=== PATIENT | female | born 1935 | race Caucasian/White ===

== ENCOUNTER 2017-06-13 13:15 | Inpatient (IN) | payer MEDICARE, OTHER ==
[~2017-06-13] VITALS: Ht 165.1 cm; Wt 69.9 kg
[~2017-06-13 13:15] MED LIST: BIMA2.5D5 EACHEYE; BLOO-129 IN; BRIM5DRO11 EACHEYE; CHOL50004 PO; DOCU-141 PO; DONE10TA44 PO; ESCI10TA PO; INSU100V10 SQ; LATA2.5D2 EACHEYE; LEVO75TA7 PO; LISI10TA5 PO; OMEP20CA10 PO; SIMV10TA6 PO; TRAZ-144 PO
[2017-06-13] MEDS ORDERED: IPRATROPIUM NEB FS 0.5 MG/2.5 ML AMPUL.NEB NEB ONE ×2 (13:30→14:30)
[2017-06-13] MEDS ORDERED: ALBUTEROL FS 2.5 MG/3 ML VIAL.NEB NEB ONE ×2 (13:30→14:30)
[2017-06-13] MEDS ORDERED: IV NS 0.9% 500 ML BAG IV ONE (13:30)
[2017-06-13] MEDS ORDERED: IPRATROPIUM NEB FS 0.5 MG/2.5 ML AMPUL.NEB ONE ×2 (13:39→14:35)
[2017-06-13] MEDS ORDERED: ALBUTEROL FS 2.5 MG/3 ML VIAL.NEB ONE ×2 (13:39→14:35)
[2017-06-13 14:09] LABS: BASOPHILS % (AUTO) 0.2 % (0.0-2.0); EOSINOPHILS % (AUTO) 0.1 % (0.0-6.0); HEMATOCRIT 40 % (33-45); HEMOGLOBIN 13.3 g/dL (11.5-14.8); LYMPHOCYTES # (AUTO) 1.4 /CMM (0.8-4.8); LYMPHOCYTES % (AUTO) 9.8 % (20.0-44.0); MEAN CORPUSCULAR HEMOGLOBIN 30 PG (26.0-33.0); MEAN CORPUSCULAR HGB CONC 33 g/dl (31.0-36.0); MEAN CORPUSCULAR VOLUME 90 fL (82-100); MONOCYTES # (AUTO) 0.7 /CMM (0.1-1.30); MONOCYTES % (AUTO) 5.1 % (2.0-12.0); NEUTROPHILS # (AUTO) 11.8 /CMM (1.8-8.9); NEUTROPHILS % (AUTO) 84.8 % (43.0-81.0); PLATELET COUNT (AUTO) 188 /CMM (150-450); RDW COEFFICIENT OF VARIATION 13.8 (11.5-15.0); RED BLOOD CELL COUNT(AUTO) 4.46 MIL/uL (4.0-5.2); WHITE BLOOD COUNT (AUTO) 13.9 K/uL (4.3-11.0)
[2017-06-13] MEDS ORDERED: TRIA15OI2 TP (14:09)
[2017-06-13] MEDS ORDERED: PROM6.25 PO (14:09)
[2017-06-13] MEDS ORDERED: LORA10TA7 PO (14:09)
[2017-06-13] MEDS ORDERED: QUET25TA PO (14:09)
[2017-06-13] MEDS ORDERED: CHOL100044 PO (14:09)
[2017-06-13] MEDS ORDERED: MEGE40TA PO (14:09)
[2017-06-13] MEDS ORDERED: VALS80TA2 PO (14:09)
[2017-06-13] MEDS ORDERED: KETO120S2 TP (14:13)
[2017-06-13 14:16] LABS: CARBON DIOXIDE 29 mmol/L (21-32); CHLORIDE 105 mmol/L (98-107); CREATININE 1.1 mg/dL (0.6-1.3); GLUCOSE 262 mg/dL (74-106); POTASSIUM 3.6 mmol/L (3.5-5.1); SODIUM SERUM 140 mmol/L (136-145); UREA NITROGEN, BLOOD 20 mg/dL (7-18)
[2017-06-13 14:24] LABS: TROPONIN I < 0.017 ng/mL (0.00-0.056)
[2017-06-13] MEDS ORDERED: VANCOMYCIN 1 GM in IV D5W 250 ML IV SCH (14:30)
[2017-06-13] MEDS ORDERED: LEVOFLOXACIN 750 MG /D5W 150ML 750 MG in PREMIX 1 EA IV SCH (14:30)
--- NOTE | 2017-06-13 14:30 | NUR ---
PAGED DR LAUREN FOR ADMISSION
[2017-06-13 14:32] LABS: ALANINE AMINOTRANSFERASE 20 U/L (12-78); ALKALINE PHOSPHATASE 74 U/L (46-116); ASPARTATE AMINOTRANSFERASE 20 U/L (15-37); B-TYPE NATRIURETIC PEPTIDE 918 PG/ML (0-125); BILIRUBIN,DIRECT 0.7 mg/dL (0.0-0.2); TOTAL PROTEIN, SERUM 8.8 g/dL (6.4-8.2)
[2017-06-13 14:36] LABS: INR 0.99 (0.85-1.15)
[2017-06-13] MEDS ORDERED: LEVOFLOXACIN 750 MG /D5W 150ML 150 ML IV ONE (14:42)
--- NOTE | 2017-06-13 16:00 | NUR ---
MS RN NOTES ADMITTED PATIENT FROM ER ACCOMPANIED BY DAUGHTER IN STABLE CONDITION. NO SOB NOTED. NO ACUTE DISTRESS NOTED. BREATHING UNLABORED. ORIENTED TO THE ROOM. NEEDS ATTENDED. SAFETY MEASURES IS PLACE. CALL LIGHT PLACED WITHIN REACH. WILL CONTINUE TO MONITOR ACCORDINGLY.
[2017-06-13] MEDS ORDERED: ONDANSETRON HCL/PF 4 MG/2 ML VIAL IVP PRN (17:00)
[2017-06-13] MEDS ORDERED: ACETAMINOPHEN 325 MG TABLET PO PRN (17:00)
[2017-06-13] MEDS ORDERED: ALBUTEROL FS 2.5 MG/3 ML VIAL.NEB NEB PRN (17:00)
[2017-06-13] MEDS ORDERED: DEXTROSE 50%-WATER 50 ML DISP.SYRIN IV PRN (17:30)
[2017-06-13] MEDS: IV NS 0.9% 1,000 ML IV PRN (17:59)
[2017-06-13] MEDS: BLOOD SUGAR DIAGNOSTIC 1 EACH STRIP IN SCH ×2 (18:00→21:24)
[2017-06-13] MEDS ORDERED: PIPERACILLIN /TAZOBACTAM 3.375 G in IV D5W 50 ML IV ONE (18:00)
--- NOTE | 2017-06-13 19:00 | NUR ---
MS RN NOTES PATIENT IN BED EYES CLOSED, AROUSABLE TO VERBAL AND TACTILE STIMULI. VERBALLY RESPONSIVE. ON O2 @ 3LPM VIA NC. NO ACUTE DISTRESS NOTED. NO SOB NOTED. BREATHING UNLABORED. IV ACCESS PATENT AND INTACT. NO S/SX OF REDNESS OR SWELLING. SAFETY MEASURES IN PLACE. CALL LIGHT WITHIN REACH. PATIENT DIDN'T WANNA EAT DINNER YET, INSULIN NOT GIVEN YET AT THIS TIME, ENDORSED TO CITY ENGINEER NURSE FOR CONTINUITY OF CARE.
--- NOTE | 2017-06-13 19:30 | NUR ---
MS RN OPENING NOTES: PATIENT IN BED, AOX2, MOSTLY AZERI SPEAKING BUT RESPONDS IN SIMPLE LAO AT TIMES. ON O2 AT 3 LPM VIA NC, BREATHING EVEN AND UNLABORED. BREATH SOUNDS CLEAR TO AUSCULTATION, DIMINISHED AT BASES. PIV OVER LAC G 20 INTACT AND INFUSING WELL WITH NS RUNNING AT 75 ML/HR. PROVIDED FOR COMFORT AND SAFETY. BED IN LOWEST AND LOCKED POSITION, SIDERAILS UP X 3, BED ALARMS ON. CALL LIGHT WITHIN REACH. WILL CONT TO MONITOR.
[2017-06-13 20:00] VITALS: BP 137/60
[2017-06-13] MEDS: TRAZODONE 50 MG TABLET PO SCH (21:24)
[2017-06-13] MEDS: DONEPEZIL 5 MG TABLET PO SCH (21:24)
[2017-06-13] MEDS: SIMVASTATIN 10 MG TABLET PO SCH (21:24)
[2017-06-13] MEDS: LATANOPROST EYE DROP 0.005% 2.5 ML BOTTLE OP SCH (21:25)
[2017-06-13] MEDS: INSULIN REGULAR, HUMAN 100 UNIT/ML 3 ML VIAL SQ PRN (21:35)
--- NOTE | 2017-06-13 22:00 | NUR ---
RN NOTES; BLOOD SUGAR CHECKED AT 214 MG/DL, ADMINISTERED 4 UNITS REGULAR INSULIN. PATIENT OFFERED LIGHT SNACK.
[2017-06-14] MEDS: IV NS 0.9% 1,000 ML IV PRN (05:49)
[2017-06-14] MEDS: BLOOD SUGAR DIAGNOSTIC 1 EACH STRIP IN SCH ×4 (06:32→21:27)
--- NOTE | 2017-06-14 06:53 | NUR ---
MS RN CLOSING NOTES: PATIENT IN BED, AOX2, ON O2 AT 3 LPM VIA NC, BREATHING EVEN AND UNLABORED. APPEARS CALM AND IN NO DISTRESS. PIV OVER LAC G 20 INTACT AND PATENT, INFUSING WELL WITH NS RUNNING AT 75 ML/HR. AM BLOOD SUGAR CHECKED AT 120 MG/DL. DUE MEDS GIVEN. PROVIDED FOR COMFORT AND SAFETY. BED IN LOWEST AND LOCKED POSITION, SIDERAILS UP X3, CALL LIGHT WITHIN REACH. WILL ENDORSE TO AM RN FOR CARO
--- NOTE | 2017-06-14 07:00 | NUR ---
MS RN OPENING NOTES RECEIVED PATIENT IN BED ALERT ORIENTED. HOB ELEVATED. NO ACUTE DISTRESS NOTED. BREATHING UNLABORED. NO SOB NOTED. ON O2 @ 3LPM VIA NC. IV ACCESS PATENT AND INTACT. NO REDNESS OR SWELLING NOTED. SAFETY MEASURES IN PLACE. CALL LIGHT PLACED WITHIN REACH. WILL CONTINUE TO MONITOR ACCORDINGLY.
[2017-06-14 07:09] LABS: BASOPHILS % (AUTO) 0.1 % (0.0-2.0); EOSINOPHILS # (AUTO) 0.1 /CMM (0.0-0.7); EOSINOPHILS % (AUTO) 0.5 % (0.0-6.0); HEMATOCRIT 36 % (33-45); LYMPHOCYTES # (AUTO) 0.9 /CMM (0.8-4.8); LYMPHOCYTES % (AUTO) 7.7 % (20.0-44.0); MEAN CORPUSCULAR HEMOGLOBIN 30 PG (26.0-33.0); MEAN CORPUSCULAR HGB CONC 33 g/dl (31.0-36.0); MEAN CORPUSCULAR VOLUME 92 fL (82-100); MONOCYTES # (AUTO) 0.8 /CMM (0.1-1.30); MONOCYTES % (AUTO) 6.6 % (2.0-12.0); NEUTROPHILS % (AUTO) 85.1 % (43.0-81.0); PLATELET COUNT (AUTO) 139 /CMM (150-450); RDW COEFFICIENT OF VARIATION 14.6 (11.5-15.0); RED BLOOD CELL COUNT(AUTO) 3.94 MIL/uL (4.0-5.2); WHITE BLOOD COUNT (AUTO) 11.7 K/uL (4.3-11.0)
[2017-06-14 07:34] LABS: CALCIUM, SERUM 9.4 mg/dL (8.5-10.1); CARBON DIOXIDE 28 mmol/L (21-32); CHLORIDE 107 mmol/L (98-107); CREATININE 0.8 mg/dL (0.6-1.3); GLUCOSE 138 mg/dL (74-106); MAGNESIUM 1.9 mg/dL (1.8-2.4); PHOSPHORUS 3.2 mg/dL (2.5-4.9); POTASSIUM 4.4 mmol/L (3.5-5.1); SODIUM SERUM 142 mmol/L (136-145); UREA NITROGEN, BLOOD 16 mg/dL (7-18)
[2017-06-14 08:00] VITALS: BP 121/62
[2017-06-14] MEDS: LEVOTHYROXINE SODIUM 75 MCG TABLET PO SCH (08:25)
[2017-06-14] MEDS: VALSARTAN 80 MG TABLET PO SCH (08:26)
[2017-06-14] MEDS: LORATADINE 10 MG TABLET PO SCH (08:26)
[2017-06-14] MEDS: QUETIAPINE FUMARATE 25 MG TABLET PO SCH ×2 (08:26→17:05)
[2017-06-14] MEDS: ESCITALOPRAM OXALATE (10 MG) 10 MG TABLET PO SCH (08:26)
[2017-06-14] MEDS: PANTOPRAZOLE 40 MG VIAL IV SCH (08:26)
[2017-06-14] MEDS: CHOLECALCIFEROL 1,000 UNIT TABLET (VIT D3) PO SCH (08:26)
[2017-06-14] MEDS: BRIMONIDINE TARTRATE OPHT SOLN 5 ML BOTTLE EACHEYE SCH ×2 (08:29→17:05)
[2017-06-14] MEDS: ALBUTEROL FS 2.5 MG/3 ML VIAL.NEB NEB SCH ×3 (08:52→19:42)
[2017-06-14] MEDS: INSULIN GLARGINE, 100 UNIT/ML CARTRIDGE SQ SCH (09:46)
--- NOTE | 2017-06-14 09:46 | NUR ---
WOUND CARE CONSULT: PT PRESENTS WITH LEFT HEEL DTI WHICH IS INTACT AND PRESENT ON ADMISSION. ALL SKIN PROTECTION AND WOUND CARE RECOMMENDATIONS DISCUSSED WITH NURSING STAFF. RECOMMEND DPM CONSULT. WILL SEE PRN. LONG IN AGREEMENT WITH PLAN OF CARE. Addendum: 06/14/17 at 0947 by ILIA GARCIA WNDNU Amended: Links added.
[2017-06-14] MEDS: predniSONE 20 MG TABLET PO SCH (09:47)
[2017-06-14] MEDS: INSULIN REGULAR, HUMAN 100 UNIT/ML 3 ML VIAL SQ PRN ×3 (12:26→21:47)
[2017-06-14] MEDS: LEVOFLOXACIN 750 MG /D5W 150ML 750 MG in PREMIX 1 EA IV SCH (15:07)
[2017-06-14 16:00] VITALS: BP 90/50
--- NOTE | 2017-06-14 18:30 | NUR ---
MS RN CLOSING NOTES PATIENT IN BED EYES CLOSED, AROUSABLE. RESPONSIVE TO VERBAL AND TACTILE STIMULI. NO ACUTE DISTRESS NOTED. BREATHING UNLABORED. NO SOB NOTED. ON O2 @ 3LPM VIA NC. IV ACCESS PATENT AND INTACT. NO REDNESS OR SWELLING NOTED. SAFETY MEASURES IN PLACE.HOB ELEVATED. DUE MEDICATIONS GIVEN, NO ASE NOTED. NEEDS ATTENDED AND ANTICIPATED. CALL LIGHT PLACED WITHIN REACH. WILL CONTINUE TO MONITOR ACCORDINGLY.WILL ENDORSE TO SAMPLE WRAPPER FOR CONTINUITY OF CARE.
--- NOTE | 2017-06-14 19:30 | NUR ---
MS RN OPENING NOTES: PATIENT IN BED, AOX2, ON ROOM AIR AT THIS TIME, SINCE PATIENT REFUSES TO WEAR NASAL CANNULA. APPEARS CALM AND IN NO DISTRESS. BREATHING EVEN AND UNLABORED. BREATH SOUNDS CLEAR TO AUSCULTATION. PIV OVER LAC G20 INTACT AND PATENT TO FLUSH. PROVIDED FOR COMFORT AND SAFETY. BED IN LOWEST AND LOCKED POSITION, SIDERAILS UP X 3, BED ALARMS ON. WILL CONT TO MONITOR.
[2017-06-14 20:00] VITALS: BP 111/64
[2017-06-14] MEDS: LATANOPROST EYE DROP 0.005% 2.5 ML BOTTLE OP SCH (21:28)
[2017-06-14] MEDS: SIMVASTATIN 10 MG TABLET PO SCH (21:32)
[2017-06-14] MEDS: DONEPEZIL 5 MG TABLET PO SCH (21:32)
[2017-06-14] MEDS: TRAZODONE 50 MG TABLET PO SCH (21:32)
--- NOTE | 2017-06-14 21:47 | NUR ---
RN NOTES: PATIENT'S BLOOD SUGAR CHECKED AT 243 MG/DL, ADMINISTERED 4 UNITS REGULAR INSULIN. ASSISTED PATIENT WITH LIGHT SNACK.
[2017-06-15] MEDS: BLOOD SUGAR DIAGNOSTIC 1 EACH STRIP IN SCH ×4 (06:41→21:50)
[2017-06-15] MEDS: INSULIN REGULAR, HUMAN 100 UNIT/ML 3 ML VIAL SQ PRN ×4 (06:42→21:54)
[2017-06-15] MEDS: LEVOTHYROXINE SODIUM 75 MCG TABLET PO SCH (06:46)
--- NOTE | 2017-06-15 06:50 | NUR ---
MS RN CLOSING NOTES: PATIENT IN BED, AOX2, ON ROOM AIR, BREATHING EVEN AND UNLABORED. APPEARS CALM AND IN NO DISTRESS. DENIES PAIN. PIV OVER LAC G 20 INTACT AND PATENT TO FLUSH. AM BLOOD SUGAR CHECKED AT 184 MG/DL, ADMINISTERED 3 UNITS REGULAR INSULIN PER SCALE. DUE MEDS GIVEN. PROVIDED FOR COMFORT AND SAFETY. BED IN LOWEST AND LOCKED POSITION, SIDERAILS UP X 3, BED ALARMS ON. WILL ENDORSE TO AM RN FOR CARO.
--- NOTE | 2017-06-15 07:00 | NUR ---
MS RN OPENING NOTES RECEIVED PATIENT IN BED ALERT ORIENTED X 3 . NO SOB NOTED. NO ACUTE DISTRESS NOTED. BREATHING UNLABORED. IV ACCESS PATENT AND INTACT. NO REDNESS OR SWELLING NOTED. SAFETY MEASURES IN PLACE. HOB ELEVATED. CALL LIGHT PLACED WITHIN REACH. WILL CONTINUE TO MONITOR ACCORDINGLY.
[2017-06-15 07:16] LABS: HEMATOCRIT 35 % (33-45); HEMOGLOBIN 11.6 g/dL (11.5-14.8); LYMPHOCYTES # (AUTO) 0.7 /CMM (0.8-4.8); MEAN CORPUSCULAR HEMOGLOBIN 31 PG (26.0-33.0); MEAN CORPUSCULAR HGB CONC 34 g/dl (31.0-36.0); MEAN CORPUSCULAR VOLUME 91 fL (82-100); MONOCYTES # (AUTO) 0.4 /CMM (0.1-1.30); MONOCYTES % (AUTO) 4.7 % (2.0-12.0); NEUTROPHILS # (AUTO) 7.9 /CMM (1.8-8.9); NEUTROPHILS % (AUTO) 87.3 % (43.0-81.0); PLATELET COUNT (AUTO) 164 /CMM (150-450); RDW COEFFICIENT OF VARIATION 13.9 (11.5-15.0)
[2017-06-15 07:29] LABS: CALCIUM, SERUM 9.6 mg/dL (8.5-10.1); CARBON DIOXIDE 27 mmol/L (21-32); CHLORIDE 106 mmol/L (98-107); CREATININE 0.9 mg/dL (0.6-1.3); GLUCOSE 201 mg/dL (74-106); MAGNESIUM 1.9 mg/dL (1.8-2.4); POTASSIUM 4.3 mmol/L (3.5-5.1); SODIUM SERUM 140 mmol/L (136-145); UREA NITROGEN, BLOOD 26 mg/dL (7-18)
[2017-06-15 08:00] VITALS: BP 121/60
[2017-06-15] MEDS: ALBUTEROL FS 2.5 MG/3 ML VIAL.NEB NEB SCH ×3 (08:10→19:18)
[2017-06-15] MEDS: BRIMONIDINE TARTRATE OPHT SOLN 5 ML BOTTLE EACHEYE SCH ×2 (08:57→17:49)
[2017-06-15] MEDS: PANTOPRAZOLE 40 MG VIAL IV SCH (08:58)
[2017-06-15] MEDS: CHOLECALCIFEROL 1,000 UNIT TABLET (VIT D3) PO SCH (08:58)
[2017-06-15] MEDS: LORATADINE 10 MG TABLET PO SCH (08:59)
[2017-06-15] MEDS: ESCITALOPRAM OXALATE (10 MG) 10 MG TABLET PO SCH (08:59)
[2017-06-15] MEDS: VALSARTAN 80 MG TABLET PO SCH (08:59)
[2017-06-15] MEDS: predniSONE 20 MG TABLET PO SCH (08:59)
[2017-06-15] MEDS: QUETIAPINE FUMARATE 25 MG TABLET PO SCH ×2 (08:59→17:49)
[2017-06-15] MEDS: INSULIN GLARGINE, 100 UNIT/ML CARTRIDGE SQ SCH (09:00)
--- NOTE | 2017-06-15 11:20 | NUR ---
MS RN NOTES SEEN AND EVALUATED BY DR LAUREN WITH NEW ORDERS MADE. NOTED AND CARRIED OUT.
[2017-06-15 16:00] VITALS: BP 124/69
--- NOTE | 2017-06-15 18:30 | NUR ---
MS RN CLOSING NOTES PATIENT IN BED ALERT ORIENTED. VERBALLY RESPONSIVE. NO ACUTE DISTRESS NOTED. BREATHING UNLABORED. NO SOB NOTED. ON O2 @ 3LPM VIA NASAL CANULA. IV ACCESS PATENT AND INTACT, NO REDNESS OR SWELLING NOTED. DUE MEDICATIONS GIVEN. NO ASE NOTED. NEEDS ATTENDED AND ANTICIPATED. HOB ELEVATED. SAFETY MEASURES IS PLACE. CALL LIGHT WITHIN REACH. WILL CONTINUE TO MONITOR ACCORDINGLY. WILL ENDORSE TO FREIGHT ENGINEER FOR CONTINUITY OF CARE.
--- NOTE | 2017-06-15 19:00 | NUR ---
RECIEVED ALERT . SPEAKING SOME TURKMEN SOME CAYMAN ISLANDER. EASILY AGITATED AND WILL YELL AT THE NURSE SAYING " GET OUT", BUT THEN FORGETS AND WILL SMILE AND BE NICE. BED ALARM ON
[2017-06-15 20:00] VITALS: BP 125/60
[2017-06-15 20:29] VITALS: BP 125/60
[2017-06-15] MEDS: TRAZODONE 50 MG TABLET PO SCH (21:55)
[2017-06-15] MEDS: SIMVASTATIN 10 MG TABLET PO SCH (21:55)
[2017-06-15] MEDS: LATANOPROST EYE DROP 0.005% 2.5 ML BOTTLE OP SCH (21:58)
[2017-06-15] MEDS: DONEPEZIL 5 MG TABLET PO SCH (22:02)
[2017-06-16 05:39] VITALS: BP 121/68
--- NOTE | 2017-06-16 05:41 | NUR ---
MS PRUITT IS CONFUSED AND TALKS LOUDLY. SHE REMOVED HER HEPLOCK STARTED AT THE BEGINNING OF THE SHIFT RESTARTED AND SHE WAS COOPERATIVE. SHE IS FREQ. SAYING SHE IS HUNGARY AND WANT TO EAT, WILL YELL OUT FOR FOOD IF SHE IS TOLD NO. REFUSES TO KEEP ON HER 02 BUT SHE DOES SAT 95 - 100% ROOM AIR
[2017-06-16] MEDS: BLOOD SUGAR DIAGNOSTIC 1 EACH STRIP IN SCH ×4 (06:38→21:13)
[2017-06-16] MEDS: INSULIN REGULAR, HUMAN 100 UNIT/ML 3 ML VIAL SQ PRN ×4 (06:41→21:25)
[2017-06-16 06:42] LABS: BASOPHILS % (AUTO) 0.2 % (0.0-2.0); EOSINOPHILS % (AUTO) 0.1 % (0.0-6.0); HEMATOCRIT 34 % (33-45); HEMOGLOBIN 11.2 g/dL (11.5-14.8); LYMPHOCYTES % (AUTO) 11.3 % (20.0-44.0); MEAN CORPUSCULAR HEMOGLOBIN 30 PG (26.0-33.0); MEAN CORPUSCULAR HGB CONC 34 g/dl (31.0-36.0); MEAN CORPUSCULAR VOLUME 90 fL (82-100); MONOCYTES # (AUTO) 0.6 /CMM (0.1-1.30); MONOCYTES % (AUTO) 6.2 % (2.0-12.0); NEUTROPHILS # (AUTO) 7.5 /CMM (1.8-8.9); NEUTROPHILS % (AUTO) 82.2 % (43.0-81.0); PLATELET COUNT (AUTO) 180 /CMM (150-450); RDW COEFFICIENT OF VARIATION 13.6 (11.5-15.0); WHITE BLOOD COUNT (AUTO) 9.1 K/uL (4.3-11.0)
[2017-06-16 06:53] LABS: CALCIUM, SERUM 9.5 mg/dL (8.5-10.1); CARBON DIOXIDE 29 mmol/L (21-32); CHLORIDE 105 mmol/L (98-107); CREATININE 0.9 mg/dL (0.6-1.3); GLUCOSE 234 mg/dL (74-106); MAGNESIUM 1.9 mg/dL (1.8-2.4); POTASSIUM 3.9 mmol/L (3.5-5.1); SODIUM SERUM 141 mmol/L (136-145); UREA NITROGEN, BLOOD 25 mg/dL (7-18)
[2017-06-16 08:00] VITALS: BP 151/71
[2017-06-16] MEDS: BRIMONIDINE TARTRATE OPHT SOLN 5 ML BOTTLE EACHEYE SCH ×2 (08:08→16:48)
[2017-06-16] MEDS: LEVOTHYROXINE SODIUM 75 MCG TABLET PO SCH (08:09)
[2017-06-16] MEDS: ESCITALOPRAM OXALATE (10 MG) 10 MG TABLET PO SCH (08:09)
[2017-06-16] MEDS: predniSONE 20 MG TABLET PO SCH (08:09)
[2017-06-16] MEDS: CHOLECALCIFEROL 1,000 UNIT TABLET (VIT D3) PO SCH (08:10)
[2017-06-16] MEDS: QUETIAPINE FUMARATE 25 MG TABLET PO SCH ×2 (08:12→16:49)
[2017-06-16] MEDS: VALSARTAN 80 MG TABLET PO SCH (08:13)
[2017-06-16] MEDS: LORATADINE 10 MG TABLET PO SCH (08:13)
[2017-06-16] MEDS: PANTOPRAZOLE 40 MG VIAL IV SCH (08:16)
[2017-06-16] MEDS: ALBUTEROL FS 2.5 MG/3 ML VIAL.NEB NEB SCH ×3 (08:18→19:41)
[2017-06-16] MEDS: INSULIN GLARGINE, 100 UNIT/ML CARTRIDGE SQ SCH (10:29)
[2017-06-16 16:00] VITALS: BP 126/58
[2017-06-16] MEDS: LEVOFLOXACIN 750 MG /D5W 150ML 750 MG in PREMIX 1 EA IV SCH (16:42)
--- NOTE | 2017-06-16 16:47 | NUR ---
RN NOTES DELIVERED ANTIBIOTICS FROM PHARMACY
--- NOTE | 2017-06-16 16:47 | NUR ---
RN NOTES DELIVERED ANTIBIOTICS FROM ER NOW
--- NOTE | 2017-06-16 19:30 | NUR ---
MS RN OPENING NOTES RECEIVED PATIENT RESTING IN BED WATCHING TV, ALERT ORIENTED X1-2. NEEDS FREQUENT REORIENTATIONS. ON 2L OF OXYGEN VIA NC. RESPIRATIONS EVEN AND UNLABORED, NO APPARENT SIGN OF DISTRESS OR DISCOMFORT. PATIENT DENIES SOB AND PAIN AT THIS TIME. RIGHT HAND IV 22G, FLASHED WITH NS, PATENT AND INTACT. PATIENT IS BAHRAINI SPEAKING BUT UNDERSTANDS YI. SAFETY MEASURES IN PLACE, BED IS IN LOW LOCKED POSITION, SIDE RAILS UPX2, ALARM ON, CALL LIGHT WITHIN EASY REACH. WILL CONTINUE TO MONITOR.
--- NOTE | 2017-06-16 19:30 | NUR ---
RN NOTES: PATIENT AOX2-3, ENGLISH AND NIGERIEN SPEAKING. IV SITE ON RIGHT ARM PATENT AND INTACT. PATIENT STABLE THROUGHOUT SHIFT. DENIED PAIN THROUGHOUT SHIFT. KEPT CLEAN AND DRY. TURNED AND REPOSITIONED EVERY 2 HOURS. WOUND DRESSING DONE. NO AGITATION NOTED THROUGHOUT SHIFT ASPIRATION PRECUATIONS IMPLEMENTED THROUGOUT SHIFT. NO SIGNS OF ASPIRATION NOTED.
[2017-06-16 20:00] VITALS: BP 106/55
[2017-06-16] MEDS: DONEPEZIL 5 MG TABLET PO SCH (21:13)
[2017-06-16] MEDS: SIMVASTATIN 10 MG TABLET PO SCH (21:13)
[2017-06-16] MEDS: TRAZODONE 50 MG TABLET PO SCH (21:13)
[2017-06-16] MEDS: LATANOPROST EYE DROP 0.005% 2.5 ML BOTTLE OP SCH (21:16)
--- NOTE | 2017-06-16 22:00 | NUR ---
PATIENT MEDICATION GIVEN WITH APPLE SAUCE. HOB ELEVATED TO 90 DEGREES PRIOR TO MEDICATION ADMINISTRATION. NO COUGH OR SIGNS OF ASPIRATION OBSERVED.
--- NOTE | 2017-06-16 22:15 | NUR ---
PATIENT'S BLOOD GLUCOSE AT 306MG/DL. 8 UNITS OF REGULAR INSULIN ADMINISTERED ACCORDINGLY PER SLIDING SCALE.
--- NOTE | 2017-06-17 04:15 | NUR ---
PATIENT IN BED ASLEEP COMFORTABLY. WILL CONTINUE TO MONITOR .
[2017-06-17] MEDS: BLOOD SUGAR DIAGNOSTIC 1 EACH STRIP IN SCH ×2 (07:04→12:15)
--- NOTE | 2017-06-17 07:05 | NUR ---
patient's Accu-check reading is 100mg/dl. no insulin indicated at this time per ordered protocol.
--- NOTE | 2017-06-17 07:14 | NUR ---
MS RN CLOSING NOTE PATIENT RESTING IN BED COMFORTABLY ALERT ORIENTED X2. CONFUSED AT TIMES. NEEDS FREQUENT REORIENTATIONS. ON 2L OF OXYGEN VIA NC. RESPIRATIONS EVEN AND UNLABORED, NO APPARENT SIGN OF DISTRESS OR DISCOMFORT. PATIENT DENIES SOB AND PAIN AT THIS TIME. RIGHT HAND IV 22G, FLASHED WITH NS, PATENT AND INTACT. PATIENT IS GREEK SPEAKING BUT UNDERSTANDS LAO. SAFETY MEASURES IN PLACE, BED IS IN LOW LOCKED POSITION, SIDE RAILS UPX2, ALARM ON, CALL LIGHT WITHIN EASY REACH. WILL ENDORSE TO AM NURSE FOR CONTINUITY OF CARE.
[2017-06-17 07:32] LABS: BASOPHILS % (AUTO) 0.4 % (0.0-2.0); EOSINOPHILS % (AUTO) 0.4 % (0.0-6.0); HEMATOCRIT 35 % (33-45); HEMOGLOBIN 11.8 g/dL (11.5-14.8); LYMPHOCYTES # (AUTO) 1.5 /CMM (0.8-4.8); LYMPHOCYTES % (AUTO) 18.7 % (20.0-44.0); MEAN CORPUSCULAR HEMOGLOBIN 30 PG (26.0-33.0); MEAN CORPUSCULAR HGB CONC 34 g/dl (31.0-36.0); MEAN CORPUSCULAR VOLUME 89 fL (82-100); MONOCYTES # (AUTO) 0.6 /CMM (0.1-1.30); MONOCYTES % (AUTO) 7.6 % (2.0-12.0); NEUTROPHILS # (AUTO) 6.1 /CMM (1.8-8.9); NEUTROPHILS % (AUTO) 72.9 % (43.0-81.0); PLATELET COUNT (AUTO) 169 /CMM (150-450); RDW COEFFICIENT OF VARIATION 13.6 (11.5-15.0); RED BLOOD CELL COUNT(AUTO) 3.91 MIL/uL (4.0-5.2); WHITE BLOOD COUNT (AUTO) 8.3 K/uL (4.3-11.0)
--- NOTE | 2017-06-17 07:46 | NUR ---
MS/RN OPENING NOTE PATIENT IN BED IN STABLE CONDITION. A/O X 2, ALBANIAN SPEAKING. NO SIGNS OF ACUTE DISTRESS. NO COMPLAIN OF PAIN OR DISCOMFORT. ALL NEEDS ATTENDED TO. CALL LIGHT WITHIN REACH. WILL CONTINUE TO MONITOR TO ENSURE SAFETY.
[2017-06-17 07:57] LABS: CALCIUM, SERUM 9.2 mg/dL (8.5-10.1); CARBON DIOXIDE 32 mmol/L (21-32); CHLORIDE 105 mmol/L (98-107); CREATININE 0.8 mg/dL (0.6-1.3); GLUCOSE 94 mg/dL (74-106); POTASSIUM 3.6 mmol/L (3.5-5.1); SODIUM SERUM 142 mmol/L (136-145); UREA NITROGEN, BLOOD 24 mg/dL (7-18)
[2017-06-17 08:00] VITALS: BP 143/77
[2017-06-17] MEDS: ALBUTEROL FS 2.5 MG/3 ML VIAL.NEB NEB SCH ×2 (08:11→13:30)
[2017-06-17] MEDS: PANTOPRAZOLE 40 MG VIAL IV SCH (08:13)
[2017-06-17] MEDS: CHOLECALCIFEROL 1,000 UNIT TABLET (VIT D3) PO SCH (08:13)
[2017-06-17 08:14] VITALS: BP 143/77
[2017-06-17] MEDS: LEVOTHYROXINE SODIUM 75 MCG TABLET PO SCH (08:14)
[2017-06-17] MEDS: VALSARTAN 80 MG TABLET PO SCH (08:14)
[2017-06-17] MEDS: QUETIAPINE FUMARATE 25 MG TABLET PO SCH (08:15)
[2017-06-17] MEDS: ESCITALOPRAM OXALATE (10 MG) 10 MG TABLET PO SCH (08:15)
[2017-06-17] MEDS: LORATADINE 10 MG TABLET PO SCH (08:15)
[2017-06-17] MEDS: INSULIN GLARGINE, 100 UNIT/ML CARTRIDGE SQ SCH (08:24)
--- NOTE | 2017-06-17 08:24 | NUR ---
MS/RN LANTUS HELD 9AM LANTUS 20 UNITS HELD SECONDARY TO BLOOD SUGAR 92.
[2017-06-17] MEDS: BRIMONIDINE TARTRATE OPHT SOLN 5 ML BOTTLE EACHEYE SCH (08:27)
[2017-06-17] MEDS ORDERED: predniSONE 20 MG TABLET PO SCH (09:00)
[2017-06-17] MEDS: INSULIN REGULAR, HUMAN 100 UNIT/ML 3 ML VIAL SQ PRN (12:38)
--- NOTE | 2017-06-17 14:18 | NUR ---
MS/ARCHITECT NAVAL PATIENT DISCHARGE TO [facility] IN STABLE CONDITION. A/O X 1-2 WITH EPISODES OF CONFUSION AND FORGETFULNESS, DIVEHI SPEAKING. DISCHARGE INSTRUCTIONS AND EDUCATION PROVIDED, UNABLE TO COMPREHEND. REPORT GIVEN TO BLAS BELL FROM [facility]. ALL NEEDS ATTENDED TO. NAME BAND AND IV LINE REMOVED. DAUGHTER CELE AWARE ABOUT DISCHARGE TO [facility]. LEFT VIA GURNEY IN STABLE CONDITION ACCOMPANIED BY 2 EMT'S.
[2017-06-18] MEDS ORDERED: LEVOFLOXACIN (750 MG) 750 MG TABLET PO SCH (15:00)
== END 2017-06-17 14:00 | DRG 203 ==
LOC: ER 13:16 → TELE 14:06 → MED 23:17
PROVIDERS: ADMIT Legal Medicine; ATTEND Legal Medicine
DX: J20.9 Acute bronchitis, unspecified (principal); R06.03 Acute respiratory distress; F20.9 Schizophrenia, unspecified; E11.9 Type 2 diabetes mellitus without complications; L89.629 Pressure ulcer of left heel, unspecified stage; F03.90 Unspecified dementia, unspecified severity, without behavioral disturbance, psychotic disturbance, mood disturbance, and anxiety; E03.9 Hypothyroidism, unspecified; E78.5 Hyperlipidemia, unspecified; H40.9 Unspecified glaucoma; I10 Essential (primary) hypertension; Z79.4 Long term (current) use of insulin; Z79.899 Other long term (current) drug therapy; K57.90 Diverticulosis of intestine, part unspecified, without perforation or abscess without bleeding
CPT/HCPCS: 36415; 71045-TC; 80048-TC; 80076-TC; 82962-TC; 83605-TC; 83735-TC; 83880; 84100-TC; 84484-TC; 85025-TC; 85730-TC; 87040-TC; 87081-TC; 87400; 94799-TC; A4216; A4606; A6402; C9113; J1815; J1956; J2543; J3370; J7030; J7040; J7060; Z7610

== ENCOUNTER 2018-10-25 10:36 | Emergency (ER) | payer MEDICARE, OTHER ==
[~2018-10-25] VITALS: Ht 152.4 cm; Wt 74.8 kg
[~2018-10-25 10:36] MED LIST changes: +CHOL100044 PO; -CHOL50004 PO; -DOCU-141 PO; +KETO120S3 TP; -LATA2.5D2 EACHEYE; -LISI10TA5 PO; +LORA10TA7 PO; +MEGE40TA PO; -OMEP20CA10 PO; +OMEP20CA11 PO; +PROM6.256 PO; +QUET25TA PO; -TRAZ-144 PO; +TRAZ-182 PO; +TRIA15OI2 TP; +VALS80TA2 PO
--- NOTE | 2018-10-25 10:47 | NUR ---
[facility] from [facility] "cough/wheezing x1day", NOTED W PRODUCTIVE COUGH. TO ER BED 3, HOOKED TO MONITOR, CHANGED TO GOWN, PROVIDED W WARM BLANKET, DR FAY AT BEDSIDE
[2018-10-25] MEDS ORDERED: INSU100I26 SQ (10:54)
[2018-10-25] MEDS ORDERED: LOSA25TA27 PO (10:54)
[2018-10-25] MEDS ORDERED: ACET-868 PO (10:54)
[2018-10-25] MEDS ORDERED: FLUO60SO3 TP (10:54)
[2018-10-25] MEDS ORDERED: DOCU-141 PO (10:54)
[2018-10-25] MEDS ORDERED: LATA2.5D7 EACHEYE (10:54)
[2018-10-25] MEDS ORDERED: PRAV10TA40 PO (10:54)
--- NOTE | 2018-10-25 10:57 | NUR ---
Called Rt for breathing treatment.
--- NOTE | 2018-10-25 10:57 | NUR ---
OIL SALES AND SERVICE REP AT BEDSIDE.
[2018-10-25] MEDS ORDERED: ALBUTEROL FS 2.5 MG/3 ML VIAL.NEB NEB ONE (11:00)
[2018-10-25] MEDS ORDERED: IPRATROPIUM NEB FS 0.5 MG/2.5 ML AMPUL.NEB NEB ONE (11:00)
--- NOTE | 2018-10-25 11:02 | NUR ---
RT AT BEDSIDE, STARTED W BREATHING TX
[2018-10-25] MEDS ORDERED: IPRATROPIUM NEB FS 0.5 MG/2.5 ML AMPUL.NEB ONE (11:06)
[2018-10-25] MEDS ORDERED: ALBUTEROL FS 2.5 MG/3 ML VIAL.NEB ONE ×2 (11:06→11:47)
--- NOTE | 2018-10-25 11:46 | NUR ---
RT AT BEDSIDE, STARTED 2ND BREATHING TX
[2018-10-25] MEDS ORDERED: predniSONE 20 MG TABLET ONE (11:53)
[2018-10-25] MEDS ORDERED: predniSONE 20 MG TABLET PO ONE (12:00)
[2018-10-25] MEDS ORDERED: ALBUTEROL FS 2.5 MG/0.5 ML VIAL.NEB NEB ONE (12:00)
--- NOTE | 2018-10-25 12:15 | NUR ---
REPORT GIVEN TO CELINA BELL OF [facility].
--- NOTE | 2018-10-25 12:21 | NUR ---
CALLED FOR BLS TRANSPORT, 90 MIN ETA (APPROX 4630), TRIP # [id number]
--- NOTE | 2018-10-25 14:21 | NUR ---
Patient discharged to [facility] UNIT 327 in stable condition. Written and verbal after care instructions given. Patient verbalizes understanding of instruction. PT WILL BE BROUGHT BACK TO [facility].
[2018-10-25 14:23] VITALS: BP 134/71
== END 2018-10-25 14:24 ==
LOC: ER 10:41
DX: J45.909 Unspecified asthma, uncomplicated (principal); F03.90 Unspecified dementia, unspecified severity, without behavioral disturbance, psychotic disturbance, mood disturbance, and anxiety; I10 Essential (primary) hypertension; E11.9 Type 2 diabetes mellitus without complications; G47.00 Insomnia, unspecified; Z79.4 Long term (current) use of insulin; Z79.899 Other long term (current) drug therapy
CPT/HCPCS: 71045; 94640 ×2; 99284; J7512

== ENCOUNTER 2019-02-24 17:36 | Inpatient (IN) | payer MEDICARE, OTHER ==
[~2019-02-24] VITALS: Ht 152.4 cm; Wt 73.9 kg
[~2019-02-24 17:36] MED LIST changes: +ACET-868 PO; -CHOL100044 PO; +DOCU-141 PO; -DONE10TA44 PO; +FLUO60SO3 TP; +INSU100I26 SQ; -INSU100V10 SQ; +LATA2.5D7 EACHEYE; +LOSA25TA27 PO; -MEGE40TA PO; -OMEP20CA11 PO; +PRAV10TA40 PO; -PROM6.256 PO; -SIMV10TA6 PO; -TRIA15OI2 TP; -VALS80TA2 PO
--- NOTE | 2019-02-24 17:38 | NUR ---
PT [id number], FROM [facility], C/O CP 20 MINS HARVEST WORKER FIELD CROP, ASA 162 MG, AND 2 SPRAY NITRO GIVEN ON SCENE BY EMS, PT IS AAOX2, NOT IN RESPIRATORY DISTRESS, HOOKED TO SOLE EDGE INKER MACHINE, KEPT RESTED AND COMFORTABLE, WILL CONTINUE TO MONITOR.
--- NOTE | 2019-02-24 17:41 | NUR ---
SEEN AND EXAMINED BY .
[2019-02-24] MEDS ORDERED: ONDA4TAB5 PO (17:51)
--- NOTE | 2019-02-24 17:53 | NUR ---
IV LINE ESTABLISHED, BLOOD DRAWN AND SENT TO LAB.
[2019-02-24] MEDS ORDERED: NITROGLYCERIN PACKET 1 GM PACKET ONE (17:54)
[2019-02-24] MEDS ORDERED: ASPIRIN 81 MG TAB.CHEW ONE (17:55)
[2019-02-24 18:00] LABS: EOSINOPHILS % (AUTO) 5.4 % (0.0-6.0); HEMATOCRIT 28 % (33-45); HEMOGLOBIN 8.6 g/dL (11.5-14.8); LYMPHOCYTES # (AUTO) 1.6 /CMM (0.8-4.8); LYMPHOCYTES % (AUTO) 33.7 % (20.0-44.0); MEAN CORPUSCULAR HGB CONC 31 g/dl (31.0-36.0); MEAN CORPUSCULAR VOLUME 71 fL (82-100); MONOCYTES # (AUTO) 0.4 /CMM (0.1-1.30); MONOCYTES % (AUTO) 8.3 % (2.0-12.0); NEUTROPHILS # (AUTO) 2.4 /CMM (1.8-8.9); NEUTROPHILS % (AUTO) 51.6 % (43.0-81.0); PLATELET COUNT (AUTO) 197 /CMM (150-450); RED BLOOD CELL COUNT(AUTO) 3.95 MIL/uL (4.0-5.2); WHITE BLOOD COUNT (AUTO) 4.6 K/uL (4.3-11.0)
[2019-02-24] MEDS ORDERED: NITROGLYCERIN PACKET 1 GM PACKET TD ONE (18:00)
[2019-02-24] MEDS ORDERED: ASPIRIN 81 MG TAB.CHEW PO ONE (18:00)
--- NOTE | 2019-02-24 18:00 | NUR ---
MOUNTED POLICE AT BEDSIDE FOR XRAY.
[2019-02-24 18:18] LABS: CALCIUM, SERUM 9.1 mg/dL (8.5-10.1); CARBON DIOXIDE 30 mmol/L (21-32); CHLORIDE 101 mmol/L (98-107); CREATININE 0.9 mg/dL (0.6-1.3); GLUCOSE 125 mg/dL (74-106); POTASSIUM 4.2 mmol/L (3.5-5.1); SODIUM SERUM 136 mmol/L (136-145); UREA NITROGEN, BLOOD 13 mg/dL (7-18)
[2019-02-24 18:23] LABS: ALANINE AMINOTRANSFERASE 15 U/L (12-78); ALBUMIN 3.5 g/dL (3.4-5.0); ALKALINE PHOSPHATASE 64 U/L (46-116); ASPARTATE AMINOTRANSFERASE 20 U/L (15-37); BILIRUBIN,DIRECT 0.1 mg/dL (0.0-0.2); BILIRUBIN,TOTAL 0.3 mg/dL (0.2-1.0); TOTAL PROTEIN, SERUM 7.7 g/dL (6.4-8.2)
--- NOTE | 2019-02-24 18:37 | NUR ---
PAGED DR. LAUREN.
--- NOTE | 2019-02-24 18:45 | NUR ---
NURSING SUP GAVE TELE BED 308-1.
--- NOTE | 2019-02-24 19:01 | NUR ---
PAGED EPIC DOLLY ROMERO.
--- NOTE | 2019-02-24 19:09 | NUR ---
REPORT GIVEN TO ARABELLA TOM FOR CARO.
--- NOTE | 2019-02-24 19:14 | NUR ---
Patient is resting comfortably in bed. Easily aroused. VSS.
--- NOTE | 2019-02-24 19:51 | NUR ---
REPORT GIVEN TO DAYAMI BELL FOR CARO. BED 308-1
[2019-02-24 20:15] VITALS: BP 111/48
--- NOTE | 2019-02-24 20:15 | NUR ---
NEW ADMISSION PT ADMITTED TO ROOM 311 BED 1. REPORT RECIEVED FROM NEGRO BELL PREVIOUSLY FORM ER. PATIENT SANAZ FROM [facility], WITH C/C OF [place] CP. PATIENT IS ALERT AND ORIENTED X2 WITH SOME CONFUSION. WITH ASSISTANCE FROM IAN B2B APPOINTMENT SETTER PATIENT KEEPS STATING "I WANT TO GO HOME. I NEED TO TAKE CARE OF MY POOR MOTHER." PATIENT REORIENTED AND REASSURED SHE WAS ADMITTED FOR CP ON TELE OBSERVATION UNDER RECOVERY RN HADLEY. PATIENT ORIENTED TO ROOM. DENIES CP AT THIS TIME. TELE APPLIED PATIENT IS NSR IN 70'S. VSS. . BED DOWN LOCKED CALL LIGHT IN REACH BED ALARM ACTIVE. PATIENT UNSURE OF CURRENT MEDICATIONS AND POOR HISTORIAN OF MEDICAL PROBLEMS. DAUGHTER CELE CALLED [phone] AND ABLE TO PROVIDE SOME INFORMATION, ALSO RECORDS FROM PREVIOUS FACILITY USED FOR ADMISSION ASSESSMENT. WILL CONT TO MONITOR.
[2019-02-24] MEDS ORDERED: HYDROCODONE/APAP 5/325MG 1 EACH TABLET PO PRN (20:30)
[2019-02-24] MEDS ORDERED: Z GUARD REMEDY 2 OZ OINT TP PRN (20:30)
[2019-02-24] MEDS ORDERED: ONDANSETRON HCL/PF 4 MG/2 ML VIAL IVP PRN (20:30)
[2019-02-24] MEDS ORDERED: MAG HYDROX/AL HYDROX/SIMETH 30 ML UDC PO PRN (20:30)
[2019-02-24] MEDS ORDERED: DEXTROSE 50%-WATER 50 ML DISP.SYRIN IV PRN (20:30)
[2019-02-24] MEDS ORDERED: CLONIDINE HCL 0.1 MG TABLET PO PRN (20:30)
[2019-02-24] MEDS ORDERED: NITROGLYCERIN 0.4 MG/TAB BOTTLE SL PRN (20:30)
[2019-02-24] MEDS ORDERED: MAGNESIUM HYDROXIDE 30 ML UDC PO PRN (20:30)
[2019-02-24] MEDS ORDERED: MORPHINE SULFATE INJ 2 MG/ML DISP.SYRIN IV PRN (20:30)
[2019-02-24] MEDS ORDERED: ACETAMINOPHEN 325 MG TABLET PO PRN (20:30)
[2019-02-24 20:48] VITALS: BP 111/48
[2019-02-24] MEDS ORDERED: ENOXAPARIN SODIUM 40 MG/0.4 ML DISP.SYRIN SQ SCH (21:00)
--- NOTE | 2019-02-24 21:50 | NUR ---
PT REMOVED TELE MONITOR. IV REMOVED. PATIENT FOUND IN BED. AND FOUND TO HAVE TELE MONITOR OFF AND DRAPED OVER CHEST. PATIENT ALSO FOUND TO HAVE RIGHT AC 18 GAUGE REMOVED FROM RIGHT AC AND STICKING TO BEDRAIL ADJACENT TO PATIENT. NO BLEEDING NOTED BUT GAUZE PLACED OVER SITE TO RIGHT AC. CATHETER INTACT ON IV. IAN WALL WORKER ASSISTED WITH GREEK TRANSLATION. PATIENT DENIES THAT SHE PULLED OUT IV. PATIENT VERBALIZED UNDERSTANDING TO WEAR TELE MONITOR. TELE MONITOR REAPPLIED. NEW 22 GAUGE IV STARTED TO RIGHT FOREARM. PATIENT TOLERATED PROCEDURE WELL. ARM SLEEVES APPLIED TO DISSWAY PATIENT FROM REMOVING LINE AGAIN. WILL CONT TO MONITOR.
[2019-02-24] MEDS: INSULIN REGULAR, HUMAN 100 UNIT/ML 3 ML VIAL SQ PRN (21:51)
[2019-02-24] MEDS: BLOOD SUGAR DIAGNOSTIC 1 EACH STRIP IN SCH (21:54)
[2019-02-24] MEDS: BRIMONIDINE TARTRATE OPHT SOLN 5 ML BOTTLE OP SCH (21:54)
[2019-02-24] MEDS ORDERED: LATANOPROST EYE DROP 0.005% 2.5 ML BOTTLE EACHEYE SCH (22:00)
[2019-02-24] MEDS ORDERED: INSULIN GLARGINE, 100 UNIT/ML CARTRIDGE SQ SCH (22:00)
[2019-02-24] MEDS ORDERED: TRAZODONE 50 MG TABLET PO SCH (22:00)
[2019-02-24 23:24] VITALS: BP 159/78
[2019-02-25 04:18] VITALS: BP 120/60
--- NOTE | 2019-02-25 05:50 | NUR ---
HYPOGLYCEMIA AT ACCUCHECK BS 67 PT BLOOD SUGAR 67 GIVEN ONE BOX OF APPLE JUICE. 0620 BLOOD SUGAR RECHECKED AND NOW AT 89
[2019-02-25] MEDS: BLOOD SUGAR DIAGNOSTIC 1 EACH STRIP IN SCH ×3 (06:18→18:16)
--- NOTE | 2019-02-25 06:20 | NUR ---
RN PM CLOSING NOTE. PATIENT IN BED WITH CALL LIGHT IN REACH. ARMSLEAVES BILATERALLY STILL APPLIED IV LEFT FOREARM #22 INTACT PATENT WITH NO S/S OF INFILTRATION. BED DOWN LOCKED SRX3 BED ALARM ACTIVE. PT IN NO APPARENT DISTRESS. BREATHING IS EVEN AND UNLABORED.
[2019-02-25 06:27] LABS: BASOPHILS % (AUTO) 1.2 % (0.0-2.0); EOSINOPHILS % (AUTO) 4.6 % (0.0-6.0); HEMATOCRIT 25 % (33-45); HEMOGLOBIN 7.8 g/dL (11.5-14.8); LYMPHOCYTES # (AUTO) 1.1 /CMM (0.8-4.8); MEAN CORPUSCULAR HGB CONC 32 g/dl (31.0-36.0); MEAN CORPUSCULAR VOLUME 70 fL (82-100); MONOCYTES # (AUTO) 0.4 /CMM (0.1-1.30); MONOCYTES % (AUTO) 9.3 % (2.0-12.0); NEUTROPHILS # (AUTO) 2.4 /CMM (1.8-8.9); NEUTROPHILS % (AUTO) 57.9 % (43.0-81.0); PLATELET COUNT (AUTO) 158 /CMM (150-450); RED BLOOD CELL COUNT(AUTO) 3.56 MIL/uL (4.0-5.2); WHITE BLOOD COUNT (AUTO) 4.1 K/uL (4.3-11.0)
[2019-02-25 07:22] LABS: ALBUMIN 3.1 g/dL (3.4-5.0); BILIRUBIN,TOTAL 0.2 mg/dL (0.2-1.0); CALCIUM, SERUM 8.5 mg/dL (8.5-10.1); PHOSPHORUS 3.3 mg/dL (2.5-4.9); POTASSIUM 3.8 mmol/L (3.5-5.1); TOTAL PROTEIN, SERUM 6.8 g/dL (6.4-8.2)
[2019-02-25 07:29] LABS: THYROID STIMULATING HORMONE 4.535 uIU/mL (0.358-3.74)
[2019-02-25] MEDS ORDERED: PANTOPRAZOLE 40 MG TABLET.DR PO SCH (07:30)
[2019-02-25] MEDS ORDERED: LEVOTHYROXINE SODIUM 75 MCG TABLET PO SCH (07:30)
--- NOTE | 2019-02-25 07:30 | NUR ---
MS RN OPENING NOTES: RECEIVED PATIENT IN BED ALERT AND AWAKE. A/OX1-2 WITH MILD CONFUSION. AMHARIC SPEAKING. ABLE TO MAKE NEEDS KNOWN. NO S/S OF SOB OR DISTRESS. NO COMPLAINS OF PAIN AND DISCOMFORT AT THIS TIME. IV ACCESS ON RIGHT FA #22G INTACT AND PATENT. ON BED REST AND WHEEL CHAIR. SAFETY MEASURES INITIATED. BED IS IN LOW LOCKED POSITION WITH SIDE RAILS UP X2. CALL LIGHT WITHIN REACH. WILL CONTINUE TO MONITOR ACCORDINGLY.
[2019-02-25 08:00] VITALS: BP 134/112
[2019-02-25] MEDS: BRIMONIDINE TARTRATE OPHT SOLN 5 ML BOTTLE OP SCH ×2 (08:17→16:27)
[2019-02-25] MEDS: QUETIAPINE FUMARATE 25 MG TABLET PO SCH ×2 (08:38→16:26)
[2019-02-25] MEDS: DOCUSATE SODIUM 100 MG CAPSULE PO SCH ×2 (08:39→16:26)
--- NOTE | 2019-02-25 08:50 | NUR ---
WOUND CARE CONSULT: PT PRESENTS WITH INCONTINENCE, SCRATCH RASHID AND SCARS, DISCOLORED AREAS ON BODY AND PSORIASIS. PT STATES HAS HISTORY OF PSORIASIS. RECOMMENDATIONS MADE FOR SKIN PROTECTION. DISCUSSED WITH NURSING STAFF. WILL SEE PRN. DEFER TO MD FOR PSORIASIS SKIN CONDITION.
[2019-02-25] MEDS ORDERED: ESCITALOPRAM OXALATE (10 MG) 10 MG TABLET PO SCH (09:00)
[2019-02-25] MEDS ORDERED: ATORVASTATIN 10 MG TABLET PO SCH (09:00)
[2019-02-25] MEDS ORDERED: CARVEDILOL 12.5 MG TABLET PO SCH (09:00)
[2019-02-25] MEDS ORDERED: LOSARTAN POTASSIUM 25 MG TABLET PO SCH (09:00)
[2019-02-25] MEDS ORDERED: SOD FERRIC GLUC 125 MG in IV NS 0.9% 100 ML IV SCH (14:00)
--- NOTE | 2019-02-25 14:30 | NUR ---
MS RN NOTES: PATIENT IS STABLE IN BED, FOUND PATIENT WITH PULLED OUT IV ACCESS ON RIGHT FA. INSERTED A NEW IV ACCESS ON THE LEFT AC #20G. INTACT, PATENT AND FLUSHES WELL. NO S/S OF INFILTRATION. COVERED IC ACCESS WITH REA SLEEVE TO PREVENT PATIENT FROM PULLING OUT IV LINE. FERRLECIT 125MG STILL RUNNING. WILL CONTINUE TO MONITOR.
--- NOTE | 2019-02-25 14:40 | NUR ---
MS RN NOTES: DESPITE INTERVENTIONS, PATIENT STILL PULLED OUT IV LINE AND REFUSES IV MEDS.
[2019-02-25] MEDS ORDERED: FERR325T23 PO (15:41)
[2019-02-25] MEDS ORDERED: ASPI-1152 PO (15:41)
[2019-02-25] MEDS ORDERED: PANT40TA2 PO (15:41)
[2019-02-25 16:00] VITALS: BP 109/57
[2019-02-25] MEDS: INSULIN REGULAR, HUMAN 100 UNIT/ML 3 ML VIAL SQ PRN (18:19)
--- NOTE | 2019-02-25 18:40 | NUR ---
MS LIGHT INDUSTRIAL NOTE. PATIENT ALERT, ORIENTED X2. PATIENT WELSH SPEAKING. PATIENT WAS ADMITTED FOR OBSERVATION FOR CHEST PAIN. PATIENT DENIED CHEST PAIN THOROUGH THE SHIFT. PATIENT IN STABLE CONDITION. PERIPHERAL IV REMOVED BY PATIENT EARLIER. ALL BELONGINGS ACCOUNTED FOR. BELONGING LIST SIGNED. DISCHARGE TEACHING PROVIDED TO PATIENT. PATIENT REFUSED TEACHING. DISCHARGE PROTOCOL FOLLOWED. DISCHARGE PAPERS SIGNED BY TWO RNS. PATIENT DISCHARGED WITH EMT.
== END 2019-02-25 18:56 | DRG 392 ==
LOC: ER 17:38 → TELE 18:49 → MED 02-25 08:31
PROVIDERS: ADMIT Nurse Practitioner Acute Care; ATTEND Hospitalist
DX: K21.9 Gastro-esophageal reflux disease without esophagitis (principal); E44.1 Mild protein-calorie malnutrition; D50.9 Iron deficiency anemia, unspecified; Z68.31 Body mass index [BMI] 31.0-31.9, adult; F03.90 Unspecified dementia, unspecified severity, without behavioral disturbance, psychotic disturbance, mood disturbance, and anxiety; I10 Essential (primary) hypertension; E78.5 Hyperlipidemia, unspecified; E03.9 Hypothyroidism, unspecified; E11.9 Type 2 diabetes mellitus without complications; G47.00 Insomnia, unspecified; F20.9 Schizophrenia, unspecified; H40.9 Unspecified glaucoma
CPT/HCPCS: 36415; 71045-TC; 80048-TC; 80053-TC; 80061-TC; 80076-TC; 82962-TC; 83540-TC; 83735-TC; 84100-TC; 84439-TC; 84443-TC; 84484-TC; 85025-TC; 87081-TC; 93307-TC; 97530-TC; G0378; J1650; J1815; J2916; J7030; J7050

== ENCOUNTER 2019-03-19 17:41 | Emergency (ER) | payer MEDICARE, OTHER ==
[~2019-03-19] VITALS: Ht 162.6 cm; Wt 72.6 kg
[~2019-03-19 17:41] MED LIST changes: +ASPI-1152 PO; -BIMA2.5D5 EACHEYE; +FERR325T23 PO; -FLUO60SO3 TP; -KETO120S3 TP; +ONDA4TAB5 PO; +PANT40TA2 PO
--- NOTE | 2019-03-19 17:55 | NUR ---
BIB RA [facility],C/O CHEST PAIN, WHEEZING PER EMS,ALBUTEROL HHN AND NTG SPRAY GIVEN EMISSIONS INSPECTOR. PATIENT A/OX1-2, BREATHING EVEN AND RAPID, BREATHING TX PROVIDED BY PARAMEDICS. 100% ON THE MONITOR. ATTACHED TO THE CHURCH OFFICIAL.
[2019-03-19] MEDS ORDERED: ALBUTEROL FS 2.5 MG/3 ML VIAL.NEB ONE (17:58)
[2019-03-19] MEDS ORDERED: IPRATROPIUM NEB FS 0.5 MG/2.5 ML AMPUL.NEB ONE (17:58)
[2019-03-19] MEDS ORDERED: IPRATROPIUM NEB FS 0.5 MG/2.5 ML AMPUL.NEB NEB ONE (18:00)
[2019-03-19] MEDS ORDERED: ALBUTEROL FS 2.5 MG/3 ML VIAL.NEB NEB ONE (18:00)
[2019-03-19] MEDS ORDERED: methylPREDNISolone SOD SUCC 125 MG/2ML VIAL IV ONE (18:00)
--- NOTE | 2019-03-19 18:00 | NUR ---
DR. TIPTON AT BEDSIDE FOR EVAL.
[2019-03-19] MEDS ORDERED: methylPREDNISolone SOD SUCC 125 MG/2ML VIAL ONE (18:01)
[2019-03-19 18:32] LABS: ABG BASE EXCESS -3.3 mmol/L; ABG OXYGEN SATURATION 99.1 % (92.0-98.5); ABG PCO2 43.9 mmHg (35.0-45.0); ABG PH 7.329 (7.350-7.450); ABG PO2 208.1 mmHg (75.0-100.0); AaDO2 62.8 mmHg; MetHb 0.6 % (0.0-1.5); O2Hb 97.5 % (94.0-97.0); SITE, ABG Right Radial; VENT MODE, BG VIA HHN TX. ON MASK
[2019-03-19 18:59] LABS: BASOPHILS % (AUTO) 0.7 % (0.0-2.0); EOSINOPHILS % (AUTO) 1.9 % (0.0-6.0); HEMATOCRIT 38 % (33-45); HEMOGLOBIN 11.4 g/dL (11.5-14.8); LYMPHOCYTES # (AUTO) 2.1 /CMM (0.8-4.8); LYMPHOCYTES % (AUTO) 31.9 % (20.0-44.0); MEAN CORPUSCULAR HGB CONC 30 g/dl (31.0-36.0); MEAN CORPUSCULAR VOLUME 79 fL (82-100); MONOCYTES # (AUTO) 0.4 /CMM (0.1-1.30); MONOCYTES % (AUTO) 5.7 % (2.0-12.0); NEUTROPHILS # (AUTO) 3.9 /CMM (1.8-8.9); NEUTROPHILS % (AUTO) 59.8 % (43.0-81.0); PLATELET COUNT (AUTO) 178 /CMM (150-450); RED BLOOD CELL COUNT(AUTO) 4.76 MIL/uL (4.0-5.2); WHITE BLOOD COUNT (AUTO) 6.5 K/uL (4.3-11.0)
[2019-03-19 19:07] LABS: CARBON DIOXIDE 25 mmol/L (21-32); CHLORIDE 102 mmol/L (98-107); GLUCOSE 216 mg/dL (74-106); POTASSIUM 4.1 mmol/L (3.5-5.1); SODIUM SERUM 137 mmol/L (136-145); UREA NITROGEN, BLOOD 20 mg/dL (7-18)
--- NOTE | 2019-03-19 19:10 | NUR ---
ENDORSED TO SHIKHA BELL
[2019-03-19 19:18] LABS: ALANINE AMINOTRANSFERASE 13 U/L (12-78); ALBUMIN 3.7 g/dL (3.4-5.0); ALKALINE PHOSPHATASE 62 U/L (46-116); ASPARTATE AMINOTRANSFERASE 18 U/L (15-37); BILIRUBIN,DIRECT 0.1 mg/dL (0.0-0.2); BILIRUBIN,TOTAL 0.3 mg/dL (0.2-1.0); TOTAL PROTEIN, SERUM 8.1 g/dL (6.4-8.2)
--- NOTE | 2019-03-19 19:30 | NUR ---
PT IN BED RESTING COMFORTABLY. BREATHING EVENLY . NO RESP DISTRESS. NO SOB. SATTING 95% ON R/A. NO S/S OR C/O PAIN OR DIDCOMFORT NOTED. WILL CONT TO MONITOR , VITAL SIGNS STABLE
--- NOTE | 2019-03-19 19:34 | NUR ---
[facility] ETA 2029 [facility] [id number]
--- NOTE | 2019-03-19 20:50 | NUR ---
IV removed. Catheter intact and site benign. Pressure and 4x4 applied to site. No bleeding noted.
--- NOTE | 2019-03-19 20:55 | NUR ---
Written and verbal after care instructions given to the nursing unit manager
--- NOTE | 2019-03-19 20:55 | NUR ---
REPORT GIVEN TO paper bag making machinist AND PT WAS PICKED UP BY THE [facility] INSTABLE CONDITION VIA MIGUEL.
[2019-03-19 20:58] VITALS: BP 127/51
== END 2019-03-19 20:59 | disposition home or self-care (01) ==
LOC: ER 17:46
DX: J45.909 Unspecified asthma, uncomplicated (principal); E11.9 Type 2 diabetes mellitus without complications; I10 Essential (primary) hypertension; F03.90 Unspecified dementia, unspecified severity, without behavioral disturbance, psychotic disturbance, mood disturbance, and anxiety; G47.00 Insomnia, unspecified; Z79.899 Other long term (current) drug therapy; Z79.82 Long term (current) use of aspirin; Z79.4 Long term (current) use of insulin
CPT/HCPCS: 36415; 36600; 71045; 80048; 80076; 83880; 84484; 85025; 87804 ×2; 93005; 94640; 96374; 99284; J2930; J7030

== ENCOUNTER 2020-05-05 15:10 | Inpatient (IN) | payer MEDICARE, OTHER ==
[~2020-05-05] VITALS: Ht 152.4 cm; Wt 72.6 kg
[~2020-05-05 15:10] MED LIST changes: -ASPI-1152 PO; +ASPI-1420 PO; +LATA2.5D15 EACHEYE; -LATA2.5D7 EACHEYE
--- NOTE | 2020-05-05 15:39 | NUR ---
PT BIB PA [facility], PER EMS REPORT, FACILITY ENDORSES, "COUGHING", PT WAS NOT EATING AND TAKING HER MEDICATION. PER REPORT, PT WAS COVID POSITIVE LAST SATURDAY. PT HX OF DEMENTIA, AAOX1. 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 PLACED ON MONITOR. VSS. AWAITING MD CLEMENTE.
--- NOTE | 2020-05-05 15:53 | NUR ---
DR HERMAN AT BEDSIDE FOR EVAL.
--- NOTE | 2020-05-05 16:24 | NUR ---
IV LINE STARTED BLOOD DRAWN AND SENT TO LAB.
[2020-05-05 16:30] LABS: BASOPHILS % (AUTO) 0.3 % (0.0-2.0); HEMATOCRIT 41 % (33-45); HEMOGLOBIN 13.7 g/dL (11.5-14.8); LYMPHOCYTES # (AUTO) 0.6 /CMM (0.8-4.8); LYMPHOCYTES % (AUTO) 14.6 % (20.0-44.0); MEAN CORPUSCULAR HGB CONC 33 g/dl (31.0-36.0); MEAN CORPUSCULAR VOLUME 95 fL (82-100); MONOCYTES # (AUTO) 0.4 /CMM (0.1-1.30); MONOCYTES % (AUTO) 10.8 % (2.0-12.0); NEUTROPHILS # (AUTO) 2.8 /CMM (1.8-8.9); NEUTROPHILS % (AUTO) 74.3 % (43.0-81.0); PLATELET COUNT (AUTO) 146 /CMM (150-450); RED BLOOD CELL COUNT(AUTO) 4.37 MIL/uL (4.0-5.2); WHITE BLOOD COUNT (AUTO) 3.8 K/uL (4.3-11.0)
[2020-05-05 16:42] LABS: CALCIUM, SERUM 9.2 mg/dL (8.5-10.1); CARBON DIOXIDE 31 mmol/L (21-32); CHLORIDE 105 mmol/L (98-107); GLUCOSE 109 mg/dL (74-106); POTASSIUM 3.7 mmol/L (3.5-5.1); SODIUM SERUM 143 mmol/L (136-145); UREA NITROGEN, BLOOD 21 mg/dL (7-18)
[2020-05-05 16:55] LABS: ALANINE AMINOTRANSFERASE 32 U/L (12-78); ALBUMIN 3.1 g/dL (3.4-5.0); ALKALINE PHOSPHATASE 61 U/L (46-116); ASPARTATE AMINOTRANSFERASE 42 U/L (15-37); B-TYPE NATRIURETIC PEPTIDE 158 PG/ML (0-125); BILIRUBIN,TOTAL 0.5 mg/dL (0.2-1.0); TOTAL PROTEIN, SERUM 8.1 g/dL (6.4-8.2)
[2020-05-05 17:39] LABS: CREATINE KINASE, TOTAL 116 U/L (26-192)
[2020-05-05 17:52] LABS: C-REACTIVE PROTEIN 8.3 mg/dL (0.0-0.9)
[2020-05-05 18:08] LABS: FERRITIN 345 ng/mL (8-388)
--- NOTE | 2020-05-05 19:15 | NUR ---
REC'D REPORT FROM ARABELLA MERAZ FOR CARO
--- NOTE | 2020-05-05 20:15 | NUR ---
PT O2 SATURATION 92% RA. PLACED PT ON 2L NC 02 FOR COMFORT. PT SATURATION 96%
--- NOTE | 2020-05-05 20:35 | NUR ---
REC'D A CALL FROM [facility] COMPUTER SCIENCE INTERN . PER HER SHE WILL F/U TOMORROW FOR SNF PLACEMENT SINCE THE COVID RESULT IS STILL PENDING.
[2020-05-05] MEDS ORDERED: Z GUARD REMEDY 2 OZ OINT TP PRN (22:30)
[2020-05-05] MEDS ORDERED: ACETAMINOPHEN 325 MG TABLET PO PRN (22:30)
[2020-05-05] MEDS ORDERED: ONDANSETRON HCL/PF 4 MG/2 ML VIAL IVP PRN (22:30)
[2020-05-05] MEDS ORDERED: MORPHINE SULFATE INJ 2 MG/ML DISP.SYRIN IV PRN (22:30)
[2020-05-05] MEDS ORDERED: DEXTROSE 50%-WATER 50 ML DISP.SYRIN IV PRN (22:30)
[2020-05-05] MEDS ORDERED: INSULIN REGULAR, HUMAN 100 UNIT/ML 3 ML VIAL SQ PRN (22:30)
[2020-05-05] MEDS ORDERED: AZITHROMYCIN 500 MG in IV D5W 250 ML IV SCH (22:30)
[2020-05-05] MEDS ORDERED: ENOXAPARIN SODIUM 40 MG/0.4 ML DISP.SYRIN SQ SCH (22:30)
--- NOTE | 2020-05-05 22:30 | NUR ---
PT REPOSITIONED AND GIVEN MORE WARM BLANKETS
[2020-05-05] MEDS ORDERED: AZITHROMYCIN 500 MG VIAL ONE (23:14)
[2020-05-05] MEDS ORDERED: ENOXAPARIN SODIUM 40 MG/0.4 ML DISP.SYRIN SQ ONE (23:14)
[2020-05-06 04:29] LABS: BASOPHILS % (AUTO) 0.3 % (0.0-2.0); EOSINOPHILS % (AUTO) 0.1 % (0.0-6.0); HEMATOCRIT 40 % (33-45); HEMOGLOBIN 13.2 g/dL (11.5-14.8); LYMPHOCYTES # (AUTO) 0.7 /CMM (0.8-4.8); LYMPHOCYTES % (AUTO) 23.7 % (20.0-44.0); MEAN CORPUSCULAR HGB CONC 33 g/dl (31.0-36.0); MEAN CORPUSCULAR VOLUME 94 fL (82-100); MONOCYTES # (AUTO) 0.4 /CMM (0.1-1.30); MONOCYTES % (AUTO) 12.4 % (2.0-12.0); NEUTROPHILS # (AUTO) 1.9 /CMM (1.8-8.9); NEUTROPHILS % (AUTO) 63.5 % (43.0-81.0); PLATELET COUNT (AUTO) 130 /CMM (150-450); RED BLOOD CELL COUNT(AUTO) 4.29 MIL/uL (4.0-5.2)
[2020-05-06 05:00] LABS: ALANINE AMINOTRANSFERASE 28 U/L (12-78); ALBUMIN 2.7 g/dL (3.4-5.0); ALKALINE PHOSPHATASE 56 U/L (46-116); ASPARTATE AMINOTRANSFERASE 38 U/L (15-37); BILIRUBIN,TOTAL 0.5 mg/dL (0.2-1.0); CALCIUM, SERUM 8.8 mg/dL (8.5-10.1); CARBON DIOXIDE 32 mmol/L (21-32); CHLORIDE 107 mmol/L (98-107); CREATININE 0.9 mg/dL (0.6-1.3); GLUCOSE 56 mg/dL (74-106); MAGNESIUM 2.1 mg/dL (1.8-2.4); PHOSPHORUS 3.3 mg/dL (2.5-4.9); POTASSIUM 3.5 mmol/L (3.5-5.1); SODIUM SERUM 145 mmol/L (136-145); TOTAL PROTEIN, SERUM 7.1 g/dL (6.4-8.2); UREA NITROGEN, BLOOD 19 mg/dL (7-18)
--- NOTE | 2020-05-06 07:27 | NUR ---
GAVE REPORT TO ARABELLA MERAZ FOR CARO
[2020-05-06] MEDS ORDERED: LEVOTHYROXINE SODIUM 75 MCG TABLET PO SCH (07:30)
[2020-05-06] MEDS ORDERED: PANTOPRAZOLE 40 MG TABLET.DR PO SCH (07:30)
[2020-05-06] MEDS: BLOOD SUGAR DIAGNOSTIC 1 EACH STRIP IN SCH ×2 (08:15→12:50)
[2020-05-06] MEDS ORDERED: DEXAMETHASONE SOD PHOSPHATE 10 MG/ML VIAL ONE (08:16)
[2020-05-06] MEDS ORDERED: PANTOPRAZOLE 40 MG TABLET.DR PO ONE (08:17)
[2020-05-06] MEDS ORDERED: LOSARTAN POTASSIUM 25 MG TABLET ONE (08:17)
[2020-05-06] MEDS ORDERED: ESCITALOPRAM OXALATE (10 MG) 10 MG TABLET ONE (08:17)
[2020-05-06] MEDS ORDERED: DOCUSATE SODIUM LIQ 100 MG/10 ML UDC ONE (08:17)
[2020-05-06] MEDS ORDERED: LORATADINE 10 MG TABLET ONE (08:18)
[2020-05-06] MEDS ORDERED: BRIMONIDINE TARTRATE OPHT SOLN 5 ML BOTTLE OP SCH (08:30)
--- NOTE | 2020-05-06 08:30 | NUR ---
pt bs is 42, d50 administered. pt was assisted with feeding for breakfast. will recheck blood sugar.
[2020-05-06] MEDS ORDERED: LOSARTAN POTASSIUM 25 MG TABLET PO SCH (09:00)
[2020-05-06] MEDS ORDERED: INSULIN GLARGINE,BASAGLAR 100 UNIT/ML INSULN.PEN SQ SCH (09:00)
[2020-05-06] MEDS ORDERED: ASPIRIN EC 81 MG TABLET.DR PO SCH (09:00)
[2020-05-06] MEDS ORDERED: LORATADINE 10 MG TABLET PO SCH (09:00)
[2020-05-06] MEDS ORDERED: CHOLECALCIFEROL (VITAMIN D 3) 400 UNIT TABLET PO SCH (09:00)
[2020-05-06] MEDS ORDERED: DOCUSATE SODIUM 100 MG CAPSULE PO SCH (09:00)
[2020-05-06] MEDS ORDERED: INSULIN GLARGINE, 100 UNIT/ML CARTRIDGE SQ SCH (09:00)
[2020-05-06] MEDS ORDERED: DEXAMETHASONE SOD PHOSPHATE 10 MG/ML VIAL IV SCH (09:00)
[2020-05-06] MEDS ORDERED: ESCITALOPRAM OXALATE (10 MG) 10 MG TABLET PO SCH (09:00)
[2020-05-06] MEDS ORDERED: CHOLECALCIFEROL 1,000 UNIT TABLET (VIT D3) PO SCH (09:00)
[2020-05-06] MEDS ORDERED: DEXTROSE 50%-WATER 50 ML DISP.SYRIN ONE (09:02)
--- NOTE | 2020-05-06 10:00 | NUR ---
pt voided. pt was cleaned adl care provided linens changed. kept clean and dry and comfortable.
[2020-05-06] MEDS ORDERED: ENOX30DI SQ (10:50)
[2020-05-06] MEDS ORDERED: DEXA4TAB PO (10:50)
[2020-05-06] MEDS ORDERED: AZIT200S48 PO (10:50)
--- NOTE | 2020-05-06 12:00 | NUR ---
assisted pt with feeding for lunch ate 80%.
--- NOTE | 2020-05-06 13:25 | NUR ---
[facility] [phone] attempted to give report but was placed on hold for 15min,
--- NOTE | 2020-05-06 13:46 | NUR ---
report given to pablo hayden at [facility].
--- NOTE | 2020-05-06 15:48 | NUR ---
pt picked up by ambulance technical sales representative. report given for jose carlos. report already also given to rn assuming care at the snf. vs stable. left in stable condition.
[2020-05-06 15:49] VITALS: BP 136/81
[2020-05-06] MEDS ORDERED: ENOXAPARIN SODIUM 30 MG/0.3 ML DISP.SYRIN SQ SCH (21:00)
[2020-05-06] MEDS ORDERED: QUETIAPINE FUMARATE 25 MG TABLET PO SCH (22:00)
[2020-05-06] MEDS ORDERED: TRAZODONE 50 MG TABLET PO SCH (22:00)
[2020-05-06] MEDS ORDERED: LATANOPROST EYE DROP 0.005% 2.5 ML BOTTLE EACHEYE SCH (22:00)
[2020-05-06] MEDS ORDERED: Medication Not On Formulary EA (Pravastatin Sodium 10 MG) PO SCH (22:00)
== END 2020-05-06 15:50 | DRG 177 ==
LOC: ER 15:10 → TRANSITION 21:33
PROVIDERS: ADMIT Internal Medicine
DX: U07.1 COVID-19 (principal); J12.82 Pneumonia due to coronavirus disease 2019; G93.41 Metabolic encephalopathy; D68.59 Other primary thrombophilia; E78.5 Hyperlipidemia, unspecified; E11.9 Type 2 diabetes mellitus without complications; E03.9 Hypothyroidism, unspecified; F03.90 Unspecified dementia, unspecified severity, without behavioral disturbance, psychotic disturbance, mood disturbance, and anxiety; I10 Essential (primary) hypertension; H40.9 Unspecified glaucoma; Z79.82 Long term (current) use of aspirin; Z79.4 Long term (current) use of insulin; Z79.899 Other long term (current) drug therapy; Z87.891 Personal history of nicotine dependence; F20.9 Schizophrenia, unspecified; Z68.31 Body mass index [BMI] 31.0-31.9, adult; E66.9 Obesity, unspecified; K57.90 Diverticulosis of intestine, part unspecified, without perforation or abscess without bleeding; K80.20 Calculus of gallbladder without cholecystitis without obstruction; Z74.09 Other reduced mobility
CPT/HCPCS: 36415; 71045-TC; 80053-TC; 82550-TC; 82728-TC; 82962-TC; 83615-TC; 83735-TC; 83880; 84100-TC; 84484-TC; 85025-TC; 85378-TC; 86140-TC; 87081-TC; C9803; G0378; J0456; J1100; J1650; J1815; J2270; J2405; J7060

== ENCOUNTER 2020-11-25 21:20 | Emergency (ER) | payer MEDICARE, OTHER ==
[~2020-11-25] VITALS: Ht 152.4 cm; Wt 72.6 kg
[~2020-11-25 21:20] MED LIST changes: +AZIT200S48 PO; +DEXA4TAB PO; +ENOX30DI SQ
--- NOTE | 2020-11-25 21:35 | NUR ---
PATIENT [id number] [facility], +WHEEZING. PATIENT COVID+ BACK IN 05/12. PATIENT IS A/O X 4, RR EVEN AND UNLABORED, NO SOB NOTED. PATIENT PLACED ON MONITORS.
[2020-11-25] MEDS: IPRATROPIUM NEB FS 0.5 MG/2.5 ML AMPUL.NEB NEB ONE (22:35)
[2020-11-25] MEDS: ALBUTEROL FS 2.5 MG/3 ML VIAL.NEB NEB ONE (22:35)
[2020-11-25] MEDS ORDERED: IPRATROPIUM NEB FS 0.5 MG/2.5 ML AMPUL.NEB ONE (22:39)
[2020-11-25] MEDS ORDERED: ALBUTEROL FS 2.5 MG/3 ML VIAL.NEB ONE (22:39)
[2020-11-25] MEDS ORDERED: methylPREDNISolone SOD SUCC 125 MG/2ML VIAL ONE (23:19)
[2020-11-25] MEDS: methylPREDNISolone SOD SUCC 125 MG/2ML VIAL IV ONE (23:22)
[2020-11-25 23:36] LABS: BASOPHILS % (AUTO) 0.4 % (0.0-2.0); EOSINOPHILS % (AUTO) 3.2 % (0.0-6.0); HEMATOCRIT 43 % (33-45); LYMPHOCYTES # (AUTO) 1.7 K/uL (0.8-4.8); LYMPHOCYTES % (AUTO) 30.3 % (20.0-44.0); MEAN CORPUSCULAR HGB CONC 33 g/dl (31.0-36.0); MEAN CORPUSCULAR VOLUME 95 fL (82-100); MONOCYTES # (AUTO) 0.4 K/uL (0.1-1.30); MONOCYTES % (AUTO) 6.4 % (2.0-12.0); NEUTROPHILS # (AUTO) 3.3 K/uL (1.8-8.9); NEUTROPHILS % (AUTO) 59.7 % (43.0-81.0); PLATELET COUNT (AUTO) 125 K/uL (150-450); RED BLOOD CELL COUNT(AUTO) 4.53 MIL/uL (4.0-5.2); WHITE BLOOD COUNT (AUTO) 5.6 K/uL (4.3-11.0)
[2020-11-26 00:19] LABS: CALCIUM, SERUM 8.8 mg/dL (8.5-10.1); CARBON DIOXIDE 25 mmol/L (21-32); CHLORIDE 105 mmol/L (98-107); CREATININE 0.9 mg/dL (0.6-1.3); GLUCOSE 231 mg/dL (74-106); POTASSIUM 4.1 mmol/L (3.5-5.1); SODIUM SERUM 138 mmol/L (136-145); UREA NITROGEN, BLOOD 18 mg/dL (7-18)
[2020-11-26 00:31] LABS: ALBUMIN 3.1 g/dL (3.4-5.0); ALKALINE PHOSPHATASE 282 U/L (46-116); ASPARTATE AMINOTRANSFERASE 497 U/L (15-37); BILIRUBIN,DIRECT 0.7 mg/dL (0.0-0.2); BILIRUBIN,TOTAL 0.9 mg/dL (0.2-1.0); TOTAL PROTEIN, SERUM 7.5 g/dL (6.4-8.2)
[2020-11-26 01:11] LABS: ALANINE AMINOTRANSFERASE 1148 U/L (12-78)
[2020-11-26] MEDS ORDERED: AZIT1PAC9 PO (01:25)
[2020-11-26] MEDS ORDERED: PRED20TA PO (01:25)
[2020-11-26] MEDS ORDERED: ALBU18HF2 INH (01:25)
[2020-11-26] MEDS ORDERED: AMOX-430 PO (01:25)
--- NOTE | 2020-11-26 01:52 | NUR ---
CALLED [facility] FOR TRANSPORTATION TO [facility]. ETA AROUND 2 HOURS.
--- NOTE | 2020-11-26 01:52 | NUR ---
UPDATED ARUNA BREAUX ON PATINET STATUS. PATIENT WILL BE RETURNING TO FACILTIY. SPOKE TO SKIP
--- NOTE | 2020-11-26 02:38 | NUR ---
REPORT GIVEN TO FILM MOUNTER FOR PATIENT TRANSPORT BACK TO FACILITY.
[2020-11-26 02:52] VITALS: BP 124/76
== END 2020-11-26 02:53 ==
LOC: ER 21:23
DX: J45.909 Unspecified asthma, uncomplicated (principal); R91.8 Other nonspecific abnormal finding of lung field; R74.01 Elevation of levels of liver transaminase levels; I10 Essential (primary) hypertension; E11.9 Type 2 diabetes mellitus without complications; E78.5 Hyperlipidemia, unspecified; G93.41 Metabolic encephalopathy; F20.9 Schizophrenia, unspecified; F03.90 Unspecified dementia, unspecified severity, without behavioral disturbance, psychotic disturbance, mood disturbance, and anxiety; G47.00 Insomnia, unspecified; Z79.4 Long term (current) use of insulin; Z79.899 Other long term (current) drug therapy; Z79.82 Long term (current) use of aspirin
CPT/HCPCS: 36415; 71045; 80048; 80076; 83605; 83880; 84484; 85025; 87040 ×2; 93005; 94644; 96374; 99285; J2930

== ENCOUNTER 2021-09-14 11:08 | Emergency (ER) | payer MEDICARE, OTHER ==
[~2021-09-14] VITALS: Ht 162.6 cm; Wt 64.9 kg
[~2021-09-14 11:08] MED LIST changes: +ALBU18HF2 INH; +AMOX-430 PO; +AZIT1PAC9 PO; +PRED20TA PO
--- NOTE | 2021-09-14 11:16 | NUR ---
To ER bed 13, [id number], from [facility], c/o abd pain x 3 days, nausea vomiting and diarrhea, aaox1, breathing even and non labored, connected to monitor, awaiting md orders
[2021-09-14] MEDS ORDERED: ONDANSETRON HCL/PF 4 MG/2 ML VIAL IVP ONE (11:30)
[2021-09-14] MEDS ORDERED: IV NS 0.9% 1,000 ML BAG IV ONE (11:30)
[2021-09-14] MEDS ORDERED: ONDANSETRON HCL/PF 4 MG/2 ML VIAL ONE (11:35)
--- NOTE | 2021-09-14 11:50 | NUR ---
CLAIMS SORTER AT BEDSIDE FOR XRAY
[2021-09-14 11:53] LABS: BASOPHILS % (AUTO) 0.7 % (0.0-2.0); EOSINOPHILS % (AUTO) 1.8 % (0.0-6.0); HEMATOCRIT 43 % (33-45); HEMOGLOBIN 14.2 g/dL (11.5-14.8); LYMPHOCYTES # (AUTO) 0.9 K/uL (0.8-4.8); LYMPHOCYTES % (AUTO) 22.7 % (20.0-44.0); MEAN CORPUSCULAR HGB CONC 33 g/dl (31.0-36.0); MEAN CORPUSCULAR VOLUME 94 fL (82-100); MONOCYTES # (AUTO) 0.3 K/uL (0.1-1.30); NEUTROPHILS # (AUTO) 2.7 K/uL (1.8-8.9); NEUTROPHILS % (AUTO) 66.8 % (43.0-81.0); PLATELET COUNT (AUTO) 171 K/uL (150-450); RED BLOOD CELL COUNT(AUTO) 4.58 MIL/uL (4.0-5.2); WHITE BLOOD COUNT (AUTO) 4.1 K/uL (4.3-11.0)
--- NOTE | 2021-09-14 11:53 | NUR ---
URINE COLLECTED AND SENT TO LAB
--- NOTE | 2021-09-14 12:01 | NUR ---
COVID SWAB DONE AND SENT TO LAB
[2021-09-14] MEDS ORDERED: GLIP5TAB13 PO (12:06)
[2021-09-14] MEDS ORDERED: METF-442 PO (12:06)
[2021-09-14 12:08] LABS: ALANINE AMINOTRANSFERASE 133 U/L (12-78); ALBUMIN 3.2 g/dL (3.4-5.0); ALKALINE PHOSPHATASE 106 U/L (46-116); ASPARTATE AMINOTRANSFERASE 32 U/L (15-37); BILIRUBIN,DIRECT 0.2 mg/dL (0.0-0.2); BILIRUBIN,TOTAL 0.4 mg/dL (0.2-1.0); CHLORIDE 102 mmol/L (98-107); CREATININE 0.9 mg/dL (0.6-1.3); GLUCOSE 157 mg/dL (74-106); LIPASE 89 U/L (73-393); SODIUM SERUM 138 mmol/L (136-145); TOTAL PROTEIN, SERUM 7.2 g/dL (6.4-8.2); UREA NITROGEN, BLOOD 16 mg/dL (7-18)
[2021-09-14 12:20] LABS: CALCIUM, SERUM 9.6 mg/dL (8.5-10.1); CARBON DIOXIDE 28 mmol/L (21-32)
[2021-09-14 12:26] LABS: BILIRUBIN,URINE NEGATIVE (NEGATIVE); COLOR,URINE YELLOW (YELLOW); LEUKOCYTE ESTERASE ,URINE NEGATIVE (NEGATIVE); NITRITE, URINE NEGATIVE (NEGATIVE); PH,URINE 5.5 (5.0-8.0); PROTEIN,URINE NEGATIVE (NEGATIVE); UGLUCOSE NEGATIVE (NEGATIVE); UROBILINOGEN,URINE 0.2 EU/dL (0.2)
[2021-09-14 12:56] LABS: BACTERIA,URINE Many /HPF (None Seen)
--- NOTE | 2021-09-14 13:50 | NUR ---
PT IS WHEELED TO CT SCAN VIA [facility].
--- NOTE | 2021-09-14 14:45 | NUR ---
[facility] CALLED FOR TRANSPORT ETA 90 MINS.
--- NOTE | 2021-09-14 14:51 | NUR ---
CALLED DR. LAUREN [phone] WILL CALL US BACK.
[2021-09-14] MEDS ORDERED: IOHEXOL-300 100 ML VIAL IV ONE (15:20)
[2021-09-14] MEDS ORDERED: CT SWABBABLE VALVE TRANS SET 1 EA INFUS.SET MC ONE (15:20)
[2021-09-14] MEDS ORDERED: IV NS 0.9% 250 ML IV ONE (15:21)
--- NOTE | 2021-09-14 15:35 | NUR ---
CALLED DR. ALBERTO [phone]
[2021-09-14] MEDS ORDERED: ONDA4TAB5 PO (16:27)
--- NOTE | 2021-09-14 16:44 | NUR ---
Patient discharged to home in stable condition. Written and verbal after care instructions given. Patient verbalizes understanding of instruction.IV removed. Catheter intact and site benign. Pressure and 4x4 applied to site. No bleeding noted.
[2021-09-14 16:45] VITALS: BP 142/56
== END 2021-09-14 16:44 ==
LOC: ER 11:12
DX: R10.9 Unspecified abdominal pain (principal); R11.2 Nausea with vomiting, unspecified; R19.7 Diarrhea, unspecified; K44.9 Diaphragmatic hernia without obstruction or gangrene; N28.1 Cyst of kidney, acquired; I10 Essential (primary) hypertension; F03.90 Unspecified dementia, unspecified severity, without behavioral disturbance, psychotic disturbance, mood disturbance, and anxiety; H40.9 Unspecified glaucoma; E11.9 Type 2 diabetes mellitus without complications; Z79.84 Long term (current) use of oral hypoglycemic drugs; Z79.899 Other long term (current) drug therapy; Z20.822 Contact with and (suspected) exposure to COVID-19
CPT/HCPCS: 36415; 71045; 74176; 74177; 80048; 80076; 81001; 83690; 84484; 85025; 87426; 93005; 96361; 96374; 99285; J2405; J7030 ×2; J7050; Q9967; C9803

== ENCOUNTER 2023-02-12 11:30 | Inpatient (IN) | payer MEDICARE, OTHER ==
[~2023-02-12] VITALS: Ht 152.4 cm; Wt 50.3 kg
[~2023-02-12 11:30] MED LIST changes: -ACET-868 PO; -AMOX-430 PO; -ASPI-1420 PO; -AZIT1PAC9 PO; -AZIT200S48 PO; -BLOO-129 IN; -DEXA4TAB PO; -ENOX30DI SQ; +GLIP5TAB13 PO; -INSU100I26 SQ; +METF-442 PO; -PRED20TA PO
[2023-02-12] MEDS ORDERED: oxyCODONE/APAP (5/325 MG) 1 UDTAB TABLET ONE (11:55)
[2023-02-12] MEDS ORDERED: oxyCODONE/APAP (5/325 MG) 1 UDTAB TABLET PO ONE (12:00)
[2023-02-12 12:17] LABS: BASOPHILS % (AUTO) 0.7 % (0.0-2.0); EOSINOPHILS # (AUTO) 0.1 K/uL (0.0-0.7); EOSINOPHILS % (AUTO) 2.9 % (0.0-6.0); HEMATOCRIT 46 % (33-45); HEMOGLOBIN 15.1 g/dL (11.5-14.8); LYMPHOCYTES # (AUTO) 1.1 K/uL (0.8-4.8); LYMPHOCYTES % (AUTO) 22.5 % (20.0-44.0); MEAN CORPUSCULAR HEMOGLOBIN 31 PG (26.0-33.0); MEAN CORPUSCULAR HGB CONC 33 g/dl (31.0-36.0); MEAN CORPUSCULAR VOLUME 93 fL (82-100); MONOCYTES # (AUTO) 0.2 K/uL (0.1-1.30); MONOCYTES % (AUTO) 4.5 % (2.0-12.0); NEUTROPHILS # (AUTO) 3.3 K/uL (1.8-8.9); NEUTROPHILS % (AUTO) 69.4 % (43.0-81.0); PLATELET COUNT (AUTO) 161 K/uL (150-450); RED BLOOD CELL COUNT(AUTO) 4.87 MIL/uL (4.0-5.2); RED CELL DISTRIBUTION WIDTH 13.2 % (11.5-15.0); WHITE BLOOD COUNT (AUTO) 4.7 K/uL (4.3-11.0)
[2023-02-12 12:36] LABS: ALBUMIN 4.1 g/dL (3.4-5.0); BILIRUBIN,DIRECT 0.3 mg/dL (0.0-0.2); BILIRUBIN,TOTAL 0.6 mg/dL (0.2-1.0); CREATININE 0.7 mg/dL (0.6-1.3); POTASSIUM 4.1 mmol/L (3.5-5.1); TOTAL PROTEIN, SERUM 8.3 g/dL (6.4-8.2)
[2023-02-12 12:50] LABS: INR 1.04 (0.91-1.10); PARTIAL THROMBOPLASTIN TIME 28.2 SEC (24.3-34.3)
[2023-02-12] MEDS ORDERED: OMEP40CA21 PO (13:54)
[2023-02-12] MEDS ORDERED: [UNRECOGNIZED DRUG - CODE] PO (13:54)
[2023-02-12] MEDS ORDERED: AMLO5TAB4 PO (13:54)
[2023-02-12] MEDS ORDERED: LEVO175T7 PO (13:54)
[2023-02-12] MEDS ORDERED: ALBU18HF2 IH (13:54)
[2023-02-12] MEDS ORDERED: FLUT1AER2 IH (13:54)
[2023-02-12] MEDS ORDERED: FERR325T23 PO (13:54)
[2023-02-12] MEDS ORDERED: MIRT-73 PO (13:54)
[2023-02-12] MEDS ORDERED: ONDANSETRON HCL/PF 4 MG/2 ML VIAL IVP PRN (14:00)
[2023-02-12] MEDS ORDERED: hydrALAZINE HCL IV 20 MG VIAL IV PRN (14:00)
[2023-02-12] MEDS ORDERED: ACETAMINOPHEN 325 MG TABLET PO PRN (14:00)
[2023-02-12] MEDS ORDERED: IV NS 0.9% 1,000 ML IV SCH (14:00)
[2023-02-12] MEDS ORDERED: MORPHINE SULFATE INJ 2 MG/ML DISP.SYRIN IV PRN (14:00)
[2023-02-12 20:00] VITALS: BP 130/58; TEMP 98.6; O2SAT 99
[2023-02-12] MEDS: IV D5/0.45 NACL 1,000 ML IV SCH (20:11)
[2023-02-13] VITALS (8 sets, daily range): BP systolic 108–181; BP diastolic 59–94; TEMP 97.2–98.6; O2SAT 91–100
[2023-02-13] MEDS: IV D5/0.45 NACL 1,000 ML IV SCH ×2 (05:26→20:54)
[2023-02-13 06:45] LABS: BASOPHILS # (AUTO) 0.1 K/uL (0.0-0.2); HEMATOCRIT 41 % (33-45); HEMOGLOBIN 13.5 g/dL (11.5-14.8); LYMPHOCYTES # (AUTO) 1.3 K/uL (0.8-4.8); LYMPHOCYTES % (AUTO) 16.5 % (20.0-44.0); MEAN CORPUSCULAR HEMOGLOBIN 31 PG (26.0-33.0); MEAN CORPUSCULAR HGB CONC 33 g/dl (31.0-36.0); MEAN CORPUSCULAR VOLUME 94 fL (82-100); MONOCYTES # (AUTO) 0.5 K/uL (0.1-1.30); MONOCYTES % (AUTO) 6.3 % (2.0-12.0); NEUTROPHILS # (AUTO) 5.9 K/uL (1.8-8.9); NEUTROPHILS % (AUTO) 76.2 % (43.0-81.0); PLATELET COUNT (AUTO) 128 K/uL (150-450); RED BLOOD CELL COUNT(AUTO) 4.32 MIL/uL (4.0-5.2); RED CELL DISTRIBUTION WIDTH 13.3 % (11.5-15.0); WHITE BLOOD COUNT (AUTO) 7.8 K/uL (4.3-11.0)
[2023-02-13 07:05] LABS: ALANINE AMINOTRANSFERASE 25 U/L (12-78); ALBUMIN 3.3 g/dL (3.4-5.0); ALKALINE PHOSPHATASE 85 U/L (46-116); ASPARTATE AMINOTRANSFERASE 22 U/L (15-37); BILIRUBIN,TOTAL 0.6 mg/dL (0.2-1.0); CALCIUM, SERUM 9.1 mg/dL (8.5-10.1); CARBON DIOXIDE 24 mmol/L (21-32); CHLORIDE 101 mmol/L (98-107); CREATININE 0.6 mg/dL (0.6-1.3); GLUCOSE 197 mg/dL (74-106); PHOSPHORUS 2.9 mg/dL (2.5-4.9); POTASSIUM 3.7 mmol/L (3.5-5.1); SODIUM SERUM 135 mmol/L (136-145); UREA NITROGEN, BLOOD 15 mg/dL (7-18)
[2023-02-13 09:16] LABS: THYROID STIMULATING HORMONE 0.824 uIU/mL (0.358-3.74)
[2023-02-13] MEDS ORDERED: ANESTHESIA TRAY IN PYXIS 1 EA TRAY MC ONE (15:37)
[2023-02-13] MEDS ORDERED: BUPIVACAINE 0.25% 75 MG/30 ML VIAL ONE (15:37)
[2023-02-13] MEDS ORDERED: FENTANYL PF 100MCG/2ML AMPUL ONE (16:47)
[2023-02-13] MEDS ORDERED: TRANEXAMIC ACID 1,000 MG/10 ML VIAL ONE (17:31)
[2023-02-13] MEDS ORDERED: METOPROLOL TARTRATE INJ 5 MG/5 ML AMPUL IVP PRN (19:00)
[2023-02-13 20:21] LABS: BASOPHILS % (AUTO) 0.1 % (0.0-2.0); EOSINOPHILS % (AUTO) 0.1 % (0.0-6.0); HEMATOCRIT 36 % (33-45); HEMOGLOBIN 11.4 g/dL (11.5-14.8); LYMPHOCYTES # (AUTO) 0.5 K/uL (0.8-4.8); LYMPHOCYTES % (AUTO) 4.6 % (20.0-44.0); MEAN CORPUSCULAR HEMOGLOBIN 31 PG (26.0-33.0); MEAN CORPUSCULAR HGB CONC 32 g/dl (31.0-36.0); MEAN CORPUSCULAR VOLUME 95 fL (82-100); MONOCYTES # (AUTO) 0.5 K/uL (0.1-1.30); MONOCYTES % (AUTO) 4.6 % (2.0-12.0); NEUTROPHILS % (AUTO) 90.6 % (43.0-81.0); PLATELET COUNT (AUTO) 108 K/uL (150-450); RED BLOOD CELL COUNT(AUTO) 3.73 MIL/uL (4.0-5.2); RED CELL DISTRIBUTION WIDTH 13.7 % (11.5-15.0)
[2023-02-13] MEDS ORDERED: CEFAZOLIN 1 GM in IV D5W 50 ML IV SCH (21:00)
[2023-02-13] MEDS ORDERED: HEPARIN SODIUM, PORCINE 5000 UNITS/1 ML VIAL SQ SCH (21:00)
[2023-02-13] MEDS: CEFAZOLIN 1 GM in IV D5W 50 ML IV SCH (23:51)
[2023-02-14 04:33] VITALS: BP 123/55
[2023-02-14] MEDS: CEFAZOLIN 1 GM in IV D5W 50 ML IV SCH ×2 (06:03→14:03)
[2023-02-14 07:00] VITALS: BP 113/46; TEMP 98.2; O2SAT 98
[2023-02-14 07:00] LABS: BASOPHILS % (AUTO) 0.2 % (0.0-2.0); EOSINOPHILS % (AUTO) 0.2 % (0.0-6.0); HEMATOCRIT 33 % (33-45); HEMOGLOBIN 10.9 g/dL (11.5-14.8); LYMPHOCYTES # (AUTO) 0.6 K/uL (0.8-4.8); LYMPHOCYTES % (AUTO) 7.4 % (20.0-44.0); MEAN CORPUSCULAR HEMOGLOBIN 31 PG (26.0-33.0); MEAN CORPUSCULAR HGB CONC 34 g/dl (31.0-36.0); MEAN CORPUSCULAR VOLUME 94 fL (82-100); MONOCYTES # (AUTO) 0.4 K/uL (0.1-1.30); MONOCYTES % (AUTO) 5.1 % (2.0-12.0); NEUTROPHILS # (AUTO) 7.4 K/uL (1.8-8.9); NEUTROPHILS % (AUTO) 87.1 % (43.0-81.0); PLATELET COUNT (AUTO) 118 K/uL (150-450); RED BLOOD CELL COUNT(AUTO) 3.49 MIL/uL (4.0-5.2); RED CELL DISTRIBUTION WIDTH 13.4 % (11.5-15.0); WHITE BLOOD COUNT (AUTO) 8.5 K/uL (4.3-11.0)
[2023-02-14 07:05] LABS: CALCIUM, SERUM 8.6 mg/dL (8.5-10.1); CREATININE 0.6 mg/dL (0.6-1.3); POTASSIUM 3.7 mmol/L (3.5-5.1)
[2023-02-14] MEDS ORDERED: BUDESONIDE RESPULE INH 0.5 MG/2 ML AMPUL.NEB NEB PRN (09:30)
[2023-02-14] MEDS ORDERED: ALBUTEROL FS 2.5 MG/0.5 ML VIAL.NEB NEB PRN (09:30)
[2023-02-14] MEDS: IV D5/0.45 NACL 1,000 ML IV SCH ×2 (10:13→21:31)
[2023-02-14 16:00] VITALS: BP 119/41; TEMP 99.5; O2SAT 98
[2023-02-14] MEDS: APIXABAN 5 MG TABLET PO SCH (16:13)
[2023-02-14] MEDS: BRIMONIDINE TARTRATE OPHT SOLN 5 ML BOTTLE EACHEYE SCH (16:14)
[2023-02-14] MEDS ORDERED: HEPARIN SODIUM, PORCINE 5000 UNITS/1 ML VIAL SQ SCH (17:00)
[2023-02-14 20:00] VITALS: BP 113/55; TEMP 99.1; O2SAT 96
[2023-02-14] MEDS ORDERED: ATORVASTATIN 10 MG TABLET PO SCH (22:00)
[2023-02-15 07:00] VITALS: BP 125/75; TEMP 98.1; O2SAT 93
[2023-02-15] MEDS ORDERED: PANTOPRAZOLE 40 MG TABLET.DR PO SCH (07:30)
[2023-02-15] MEDS ORDERED: LEVOTHYROXINE SODIUM 175 MCG TABLET PO SCH (07:30)
[2023-02-15] MEDS: BRIMONIDINE TARTRATE OPHT SOLN 5 ML BOTTLE EACHEYE SCH (08:13)
[2023-02-15 08:14] VITALS: BP 128/75
[2023-02-15] MEDS: APIXABAN 5 MG TABLET PO SCH (08:15)
[2023-02-15] MEDS ORDERED: ESCITALOPRAM OXALATE (10 MG) 10 MG TABLET PO SCH (09:00)
[2023-02-15] MEDS ORDERED: LOSARTAN POTASSIUM 25 MG TABLET PO SCH (09:00)
[2023-02-15] MEDS ORDERED: FERROUS SULFATE (325 MG) 325 MG/TAB TABLET PO SCH (09:00)
[2023-02-15] MEDS ORDERED: AMLODIPINE BESYLATE 5 MG TABLET PO SCH (09:00)
[2023-02-15] MEDS ORDERED: APIX5TAB PO ×2 (11:05)
[2023-02-15] MEDS ORDERED: GLUCERNA SHAKE 237 ML CAN PO SCH (17:00)
[2023-02-21] MEDS ORDERED: APIXABAN 5 MG TABLET PO SCH (17:00)
== END 2023-02-15 14:00 | DRG 481 ==
LOC: ER 11:35 → MED 13:59
PROVIDERS: ADMIT Internal Medicine; ATTEND Internal Medicine
PROC: 0QS706Z Reposition Left Upper Femur with Intramedullary Internal Fixation Device, Open Approach (ICD-10-PCS; principal; 2023-02-13)
DX: S72.142A Displaced intertrochanteric fracture of left femur, initial encounter for closed fracture (principal); F03.918 Unspecified dementia, unspecified severity, with other behavioral disturbance; F03.93 Unspecified dementia, unspecified severity, with mood disturbance; I82.413 Acute embolism and thrombosis of femoral vein, bilateral; W06.XXXA Fall from bed, initial encounter; I10 Essential (primary) hypertension; Y92.003 Bedroom of unspecified non-institutional (private) residence as the place of occurrence of the external cause; E11.9 Type 2 diabetes mellitus without complications; E03.9 Hypothyroidism, unspecified; F32.A Depression, unspecified; H40.9 Unspecified glaucoma; E78.5 Hyperlipidemia, unspecified; M19.90 Unspecified osteoarthritis, unspecified site; F20.9 Schizophrenia, unspecified; G47.00 Insomnia, unspecified; Z79.51 Long term (current) use of inhaled steroids; Z79.84 Long term (current) use of oral hypoglycemic drugs; Z79.899 Other long term (current) drug therapy; Z74.09 Other reduced mobility; Z99.3 Dependence on wheelchair
CPT/HCPCS: 36415; 71045-TC; 72192-TC; 73020; 73502; 73552; 80048-TC; 80053-TC; 80076-TC; 83735-TC; 84100-TC; 84439-TC; 84443-TC; 85025-TC; 85730-TC; 86850-TC; 87081-TC; 93307-TC; 93970-TC; 97110-TC; 97530-TC; A4223; A6209; C1713; G0378; J0690; J2405; J2704; J3010; J3490; J7030; J7060